=== PATIENT | female | born 1955 | race Caucasian/White ===

== ENCOUNTER 2016-08-03 20:08 | Emergency (ER) | payer OTHER ==
[~2016-08-03] VITALS: Ht 170.2 cm; Wt 90.7 kg
[~2016-08-03 20:08] MED LIST: ALBUTEROL MDI INH; BACLOFEN PO; BENTYL20 MG PO; CIPRO 500MG TA500 MG PO; CYCLOBENZAPRINE5 M2 PO; DELTASONE20 MG PO; DEXILANT60 M1 PO; IBUPROFEN PO; IMITREX50 M1 PO; LAMICTAL100 M2 PO; LORAZEPAM2 M1 PO; LYRICA75 M1 PO; METFORMIN HCL500 M4 PO; PROZAC20 M2 PO; SEROQUEL XR300 M1 PO; SEROQUEL100 M1 PO; SEROQUEL25 M1 PO; TESSALON PO; TIROSINT150 MC1 PO; TRAMADOL PO; TRAMADOL50 MG PO; ULTRAM50 M1 PO; VALSARTAN160 M1 PO; VESICARE10 MG PO
[2016-08-03] MEDS ORDERED: MEDROL4 M2 PO (22:53)
[2016-08-03] MEDS ORDERED: CIPRO500 M1 PO (22:53)
[2016-08-03] MEDS ORDERED: PYRIDIUM100 M1 PO (22:53)
--- NOTE | 2016-08-03 22:54 | ED GI/GU/ABDOMINAL COMPLAINT ---
History of Present Illness General Chief Complaint: General Adult Stated Complaint: PT HAS POSSIBLE UTI Source: patient Exam Limitations: no limitations Vital Signs & Intake/Output Vital Signs & Intake/Output Vital Signs Date Time Temp Pulse Resp B/P B/P Pulse O2 O2 Flow FiO2 Mean Ox Delivery Rate 08/03 2305 98.6 89 20 124/72 94 08/03 2045 98.4 98 22 129/75 93 Room Air ED Intake and Output 08/04 0000 08/03 1200 Intake Total Output Total Balance Patient 200 lb Weight Weight Reported by Patient Measurement Method Allergies Coded Allergies: Cephalosporins (Severe, RESP DISTRESS 08/03/16) cefaclor (Severe, RESPIRATORY, ITCHING 08/03/16) codeine (Severe, ITCHING AND BREATHING 08/03/16) morphine (Severe, ITCHING AND BREATHING 08/03/16) oxycodone (Severe, ITCHING AND BREATHING 08/03/16) Reconcile Medications [ALBUTEROL MDI] 2-4 PUFF INH Q4HPRN PRN BRONCHOSPASM Ciprofloxacin HCl (Cipro) 500 MG TABLET 1 TAB PO BID PRN uti Dexlansoprazole (Dexilant) 60 MG CAP.DR.BP 1 CAP PO DAILY GI (Reported) Fluoxetine HCl (Prozac) 20 MG CAPSULE 1 CAP PO QAM MENTAL HEALTH (Reported) Lamotrigine (Lamictal) 100 MG TABLET 4 TAB PO QPM MENTAL HEALTH (Reported) Levothyroxine Sodium (Tirosint) 150 MCG CAPSULE 1 TAB PO DAILY AC THYROID ( Reported) Lorazepam 2 MG TABLET 1 TAB PO QPM ANXIETY (Reported) Metformin HCl (Metformin HCl ER) 500 MG TAB.ER.24H 1 TAB PO DAILY DIABETES ( Reported) Methylprednisolone. (Medrol) 4 MG TAB.DS.PK 1 DP PO AD rash 6 on day 1 then reduce by one tablet daily until gone Phenazopyridine HCl (Pyridium) 100 MG TABLET 1 TAB PO TID uti Pregabalin (Lyrica) 75 MG CAPSULE 1 CAP PO BID PAIN (Reported) Quetiapine Fumarate (Seroquel) 25 MG TABLET 1 TAB PO DAILY PRN MENTAL HEALTH (Reported) Quetiapine Fumarate (Seroquel XR) 300 MG TAB.ER.24H 1 TAB PO QPM MENTAL HEALTH (Reported) Quetiapine Fumarate (Seroquel) 100 MG TABLET 1 TAB PO QPM MEN] (Reported) Quetiapine Fumarate (Seroquel) 25 MG TABLET 2 TAB PO DAILY MENTAL HEALTH ( Reported) Solifenacin Succinate (Vesicare) 10 MG TABLET 1 TAB PO DAILY BLADDER ( Reported) Sumatriptan Succinate (Imitrex) 50 MG TABLET 1 TAB PO AD PRN HEADACHE ( Reported) Tramadol HCl (Ultram) 50 MG TABLET 1 TAB PO Q6P PRN pain Valsartan 160 MG TABLET 1 TAB PO DAILY BP (Reported) Triage Note: TRIAGE: PT TO ER C/C ?UTI. REPORTS PELVIC PAIN AND PAIN WHEN URINATING X ABOUT A WEEK. ALSO REPORTS SOME BACK PAIN AMD INCREASED URINARY FREQUENCY. GIVEN URINE SPECIMEN CONTAINER AT TRIAGE. Triage Nurses Notes Reviewed? yes ? n Is pt currently ? No Onset: Abrupt Duration: week(s): (1), constant, continues in ED Timing: recent history Location: urethral Radiation: no radiation No Modifying Factors: none HPI: 60-year-old female with increased frequency and painful urination for over a week. Some lower pelvic pressure and pain. Some right upper back pain. Denies any vomiting. Denies any fever. History of appendectomy and hysterectomy. (MARIN TORRES) Past History Travel History Traveled to [place] past 21 day No Medical History Any Pertinent Medical History? see below for history Neurological: NONE EENT: NONE Cardiovascular: hypertension Respiratory: NONE Gastrointestinal: NONE Hepatic: NONE Renal: NONE Musculoskeletal: NONE Psychiatric: bipolar disease Endocrine: diabetes Blood Disorders: NONE Cancer(s): thyroid cancer BURN NURSE/Reproductive: NONE Surgical History Surgical History: appendectomy, hysterectomy Psychosocial History Who do you live with Son Services at Home None What is your primary language Cuban Tobacco Use: Never used ETOH Use: occasional use Illicit Drug Use: denies illicit drug use Family History Hx Contributory? No (MARIN TORRES) Review of Systems Review of Systems Constitutional: Reports: no symptoms. EENTM: Reports: no symptoms. Respiratory: Reports: no symptoms. Cardiovascular: Reports: no symptoms. GI: Reports: no symptoms. Genitourinary: Reports: see HPI. Musculoskeletal: Reports: no symptoms. Skin: Reports: no symptoms. Neurological/Psychological: Reports: no symptoms. Hematologic/Endocrine: Reports: no symptoms. Immunologic/Allergic: Reports: no symptoms. All Other Systems: Reviewed and Negative (MARIN TORRES) Physical Exam Physical Exam General Appearance: well developed/nourished, alert, awake Head: atraumatic Eyes: Bilateral: normal appearance, EOMI. Ears, Nose, Throat, Mouth: hearing grossly normal, moist mucous membrane Neck: normal inspection Respiratory: no respiratory distress Gastrointestinal: soft, tenderness (suprapubic) Back: normal inspection Extremities: normal range of motion Neurologic/Psych: awake, alert, oriented x 3, normal gait, normal mood/affect Skin: intact, normal color Core Measures ACS in differential dx? No Severe Sepsis Present: No Septic Shock Present: No (MARIN TORRES) Progress Differential Diagnosis: appendicitis, bowel obstruction, colon cancer, diverticulitis, kidney stone, ovarian cyst, ovarian torsion, threatened AB Plan of Care: Orders Procedure Date/time Status Add-on Test (ER Only) 08/03 2242 Active CULTURE,URINE 08/03 2199 Active URINALYSIS 08/03 2021 Complete Laboratory Tests 08/03/162199: Urine Color YEL, Urine Clarity CLDY H, Urine pH 6.0, Ur Specific [place]roft <= 1.005, Urine Protein NEG, Urine Ketones NEG, Urine Nitrite POS H, Urine Bilirubin NEG, Urine Urobilinogen 0.2, Ur Leukocyte Esterase LARGE H, Ur Microscopic SEDIMENT EXAMINED, Urine WBC > 75 H, Ur Epithelial Cells MANY H, Urine Bacteria MANY H, Urine Hemoglobin TRACE-INTACT, Urine Glucose NEG Microbiology 08/03 2199 URINE ROUT: Urine Culture - RES GRAM NEGATIVE RODS Initial ED EKG: none Comments: Symptoms are consistent with uncomplicated UTI. Clinically looks well. Patient treated symptomatically. No suspicion for (MARIN TORRES) Departure Departure Disposition: HOME OR SELF CARE Condition: Stable Clinical Impression Primary Impression: UTI (urinary tract infection) Secondary Impressions: Contact dermatitis Referrals: RITA SANTA,PHILOMENA Vidal (PCP/Family) Additional Instructions: Take ciprofloxacin, Pyridium, and Medrol Dosepak as prescribed. Drink plenty of fluids. Rest. Return if any fever or vomiting or any other concerns worsening symptoms. Please go over all results of today's visit with your primary care doctor. Contact your primary care doctor to let them know you were here in the emergency room. There may be nonspecific findings which may not be related to your visit today here in the emergency room but may require further evaluation and chronic monitoring by your primary care doctor. If you had a laceration today the chance of foreign body always remains. You should follow-up with your primary care doctor for recheck in 3-5 days for a wound check. If you had an x-ray done there is a chance that a fracture could have been missed on initial read and you should follow-up with your primary care doctor for repeat x-rays if symptoms persist. If your blood pressure was elevated here in the emergency room please have rechecked by her primary care doctor within the next 48 hours by your primary care doctor. If you were prescribed a narcotic here in the emergency room or any type of controlled substances you're not allowed to drive while taking this medication or operate any type of heavy machinery. Narcotics can make you feel lightheaded dizziness nausea and can cause constipation. You may need to picking machine operator a stool softener. Thank you for choosing [facility] emergency room. Please return to the emergency room immediately if you have any other concerns worsening of symptoms. Departure Forms: Customer Survey General Discharge Information Prescriptions: Current Visit Scripts Methylprednisolone. (Medrol) 1 DP PO AD #1 DP 6 on day 1 then reduce by one tablet daily until gone Ciprofloxacin HCl (Cipro) 1 TAB PO BID PRN uti #14 TAB Phenazopyridine HCl (Pyridium) 1 TAB PO TID #6 TAB (MARIN TORRES) PA/ROLL FORM OPERATOR Co-Sign Statement Statement: ED Attending supervision documentation- I saw and evaluated the patient. I have also reviewed all the pertinent lab results and diagnostic results. I agree with the findings and the plan of care as documented in the PA's/ROLL FORM OPERATOR's documentation. x I have reviewed the ED Record and agree with the PA's/ROLL FORM OPERATOR's documentation. [] Additions or exceptions (if any) to the PAs/ROLL FORM OPERATOR's note and plan are summarized below: [] (REYES SANTA,NAUN)
[2016-08-03 23:05] VITALS: BP 124/72
[2016-08-17] MEDS ORDERED: SEROQUEL50 M1 PO ×2 (17:57→17:58)
[2016-08-17] MEDS ORDERED: LIOTHYRONINE SO5 MC1 PO (17:58)
[2016-08-17] MEDS ORDERED: ZOLOFT50 M1 PO (17:59)
[2016-08-17] MEDS ORDERED: PROAIR HFA8.5 GM INH (18:00)
[2016-08-17] MEDS ORDERED: ESTRACE42.5 GM VG (18:02)
[2016-08-17] MEDS ORDERED: ADVIL MIGRAINE200 M1 PO (18:02)
[2016-08-17] MEDS ORDERED: TYLENOL325 M1 PO (18:02)
[2016-08-17] MEDS ORDERED: LEVAQUIN750 M1 PO (18:53)
== END 2016-08-03 23:20 ==
LOC: ERH 20:08
DX: N39.0 Urinary tract infection, site not specified (principal); L25.9 Unspecified contact dermatitis, unspecified cause
CPT/HCPCS: 81001; 87086

== ENCOUNTER 2017-06-12 13:10 | Emergency (ER) | payer OTHER ==
[~2017-06-12] VITALS: Ht 170.2 cm; Wt 95.3 kg
[~2017-06-12 13:10] MED LIST changes: +ADVIL MIGRAINE200 M1 PO; +CIPRO500 M1 PO; +ESTRACE42.5 GM VG; +LEVAQUIN750 M1 PO; +LIOTHYRONINE SO5 MC1 PO; +MEDROL4 M2 PO; +PROAIR HFA8.5 GM INH; +PYRIDIUM100 M1 PO; +SEROQUEL50 M1 PO; +TYLENOL325 M1 PO; +ZOLOFT50 M1 PO
--- NOTE | 2017-06-12 16:00 | RADIOLOGY REPORT ---
EXAMINATION: XR CHEST CLINICAL INFORMATION: Cough, shortness of breath COMPARISON: Chest x-ray 03/19/2016 TECHNIQUE: 2 views of the chest were obtained. FINDINGS: Lungs are clear. No pulmonary vascular congestion. There is no pleural effusion. The heart size is normal. The cardiac and mediastinal contours are normal. There are multilevel degenerative changes of dorsal spine. IMPRESSION: Unremarkable examination.
--- NOTE | 2017-06-12 16:21 | ED GENERAL ADULT ---
History of Present Illness General Chief Complaint: Dyspnea (COPD, CHF, Other) Stated Complaint: SOB Source: patient Exam Limitations: no limitations Vital Signs & Intake/Output Vital Signs & Intake/Output Vital Signs Date Time Temp Pulse Resp B/P B/P Pulse O2 O2 Flow FiO2 Mean Ox Delivery Rate 06/125 97.0 86 20 128/67 98 Room Air 06/12 1844 98 Room Air 06/12 1727 97.2 78 20 129/60 100 Aerosol 6.0L Mask 06/12 1720 96 Room Air 06/12 1720 97 06/12 1313 96.9 96 18 123/79 96 Room Air Allergies Coded Allergies: Cephalosporins (Severe, RESP DISTRESS 08/03/16) cefaclor (Severe, DYSPNEA, ITCHING 08/17/16) codeine (Severe, ITCHING, DYSPNEA, HALLUCINATE 08/17/16) morphine (Severe, ITCHING, DYSPNEA, HALLUCINATING 08/17/16) oxycodone (Severe, ITCHING, DYSPNEA, HALLUCINATE 08/17/16) Reconcile Medications Acetaminophen (Tylenol) 325 MG TABLET 1 TAB PO PRN PAIN (Reported) Albuterol Sulfate (Proair Hfa) 90 MCG HFA.AER.AD 2 PUF INH AD PRN ASTHMA ( Reported) Albuterol Sulfate (Proair Hfa) 90 MCG HFA.AER.AD 2 PUF INH Q4-6 PRN PRN ASTHMA Dexlansoprazole (Dexilant) 60 MG CAP.DR.BP 1 CAP PO DAILY GI (Reported) Doxycycline Hyclate (Vibramycin) 100 MG CAPSULE 1 CAP PO BID BRONCHITIS Estradiol (Estrace) 0.01 % CREAM.APPL 0.5 GM VG 2XW HRT (Reported) Ibuprofen (Advil Migraine) 200 MG CAPSULE 2-3 CAP PO PRN PAIN (Reported) Lamotrigine (Lamictal) 100 MG TABLET 4 TAB PO QPM MENTAL HEALTH (Reported) Levothyroxine Sodium (Tirosint) 150 MCG CAPSULE 1 TAB PO DAILY AC THYROID ( Reported) Liothyronine Sodium 5 MCG TABLET 1 TAB PO DAILY THYROID (Reported) Lorazepam 2 MG TABLET 1 TAB PO QPM ANXIETY (Reported) Metformin HCl (Metformin HCl ER) 500 MG TAB.ER.24H 1 TAB PO DAILY DIABETES ( Reported) Prednisone (Deltasone) 20 MG TABLET 1 TAB PO DAILY BRONCHITIS/ASTHMA Pregabalin (Lyrica) 75 MG CAPSULE 1 CAP PO BID PAIN (Reported) Quetiapine Fumarate (Seroquel XR) 300 MG TAB.ER.24H 1 TAB PO QPM MENTAL HEALTH (Reported) Quetiapine Fumarate (Seroquel) 100 MG TABLET 1 TAB PO QPM MENTAL HEALTH ( Reported) Quetiapine Fumarate (Seroquel) 50 MG TABLET 1 TAB PO QAM MENTAL HEALTH ( Reported) Quetiapine Fumarate (Seroquel) 50 MG TABLET 1 TAB PO PRN ANXIETY (Reported) Sertraline HCl (Zoloft) 50 MG TABLET 1 TAB PO QPM MENTAL HEALTH (Reported) Solifenacin Succinate (Vesicare) 10 MG TABLET 1 TAB PO DAILY BLADDER ( Reported) Sumatriptan Succinate (Imitrex) 50 MG TABLET 1 TAB PO AD PRN HEADACHE ( Reported) Tramadol HCl (Ultram) 50 MG TABLET 1-2 TAB PO BIDP PRN pain Valsartan 160 MG TABLET 1 TAB PO DAILY BP (Reported) Triage Note: C/O SOB WITH DRY COUGH X 3 DAYS. WORE WITH EXERTION, ALSO C/O MID BACK PAIN. DENIES CHEST PAIN. Triage Nurses Notes Reviewed? yes Onset: Abrupt Duration: day(s): Timing: recent history HPI: 06/12/17 61-year-old female presents to the emergency department complaining of cough and congestion. She does have a history of bronchitis and is used an inhaler in the past. She denies fever but does admit to cough productive of sputum. She does admit to pleuritic chest pain. Past History Travel History Traveled to [place] past 21 day No Medical History Any Pertinent Medical History? see below for history Neurological: NONE EENT: NONE Cardiovascular: hypertension Respiratory: asthma Gastrointestinal: NONE Hepatic: NONE Renal: NONE Musculoskeletal: NONE Psychiatric: bipolar disease Endocrine: diabetes Blood Disorders: NONE Cancer(s): thyroid cancer MANAGEMENT DEVELOPMENT SPECIALIST/Reproductive: NONE Surgical History Surgical History: appendectomy, hysterectomy Psychosocial History Who do you live with Son Services at Home None What is your primary language Malaysian Tobacco Use: Never used ETOH Use: denies use Family History Hx Contributory? No Review of Systems Review of Systems Constitutional: Denies: fever. Respiratory: Reports: cough. Denies: short of breath. Cardiovascular: Denies: chest pain. GI: Reports: see HPI. Genitourinary: Reports: no symptoms. Musculoskeletal: Reports: no symptoms. Skin: Reports: no symptoms. Neurological/Psychological: Reports: no symptoms. Hematologic/Endocrine: Reports: no symptoms. Immunologic/Allergic: Reports: no symptoms. Physical Exam Physical Exam General Appearance: well developed/nourished, alert, awake, anxious, mild distress Head: atraumatic, normal appearance Eyes: Bilateral: normal appearance, PERRL, EOMI. Ears, Nose, Throat: normal pharynx, normal ENT inspection Neck: normal inspection, supple, full range of motion Respiratory: rhonchi Cardiovascular: regular rate/rhythm Peripheral Pulses: 4+ radial (R), 4+ radial (L) Gastrointestinal: soft, non-tender Back: decreased range of motion Extremities: no edema Neurologic/Psych: no motor/sensory deficits, awake, alert, oriented x 3 Skin: normal color, warm/dry Core Measures ACS in differential dx? No CVA/TIA Diagnosis: No Sepsis Present: No Sepsis Focused Exam Completed? No Progress Differential Diagnoses I considered the following diagnoses in my evaluation of the patient: pneumionia, pneumothorax, bronchitis, asthma, pulmonary embolism] Plan of Care: Orders Procedure Date/time Status Saline Lock 06/12 1706 Active TROPONIN LEVEL 06/12 1706 Complete D-DIMER 06/12 1706 Complete COMPREHENSIVE METABOLIC PANEL 06/12 1706 Complete CBC WITHOUT DIFFERENTIAL 06/12 1706 Complete EKG 06/12 1706 Active Laboratory Tests 06/12/17 1725: Anion Gap 12, Estimated GFR 35 L, BUN/Creatinine Ratio 21.3, Glucose 111 H, Calcium 9.6, Total Bilirubin 0.4, AST 26, ALT 36, Alkaline Phosphatase 113, Troponin I < 0.01, Total Protein 7.6, Albumin 4.8, Globulin 2.8, Albumin/ Globulin Ratio 1.7, D-Dimer High Sensitivty 274 H, CBC w Diff NO MAN DIFF REQ, RBC 4.14 L, MCV 87.7, MCH 28.6, MCHC 32.7 L, RDW 15.5 H, MPV 7.2 L, Gran % 57.8, Lymphocytes % 30.5, Monocytes % 8.2, Eosinophils % 3.1, Basophils % 0.4, Absolute Granulocytes 4.3, Absolute Lymphocytes 2.3, Absolute Monocytes 0.6, Absolute Eosinophils 0.2, Absolute Basophils 0 Initial ED EKG: NSR, nonspecific ST T wave chg Departure Departure Disposition: HOME OR SELF CARE Condition: Stable Clinical Impression Primary Impression: Bronchitis Referrals: Gerard SANTA,Markie Vidal (PCP/Family) Departure Forms: Customer Survey General Discharge Information Prescriptions: Current Visit Scripts Albuterol Sulfate (Proair Hfa) 2 PUF INH Q4-6 PRN PRN ASTHMA #1 INHAL Doxycycline Hyclate (Vibramycin) 1 CAP PO BID #14 CAP Prednisone (Deltasone) 1 TAB PO DAILY #3 TAB Comments PATIENT: QUEENIE WELLINGTON PRESENT AGE: 61 PATIENT ACCOUNT NO: [id number] : 56 LOCATION: [facility] ORDERING PHYSICIAN: Javid RESTREPO SERVICE DATE: 06/12/17 EXAM TYPE: RAD - XRY-CHEST XRAY, TWO VIEWS EXAMINATION: XR CHEST CLINICAL INFORMATION: Cough, shortness of breath COMPARISON: Chest x-ray 03/19/2016 TECHNIQUE: 2 views of the chest were obtained. FINDINGS: Lungs are clear. No pulmonary vascular congestion. There is no pleural effusion. The heart size is normal. The cardiac and mediastinal contours are normal. There are multilevel degenerative changes of dorsal spine. IMPRESSION: Unremarkable examination. DICTATED BY: Donell Francis MD DATE/TIME DICTATED:06/12/171555 SALES VICE PRESIDENT:ANA DATE/TIME TRANSCRIBED:06/12/171555 CONFIDENTIAL, DO NOT COPY WITHOUT APPROPRIATE AUTHORIZATION. <Electronically signed in Other Vendor System> SIGNED BY: Donell Francis MD 06/12/17 1600 X-rays negative. Age-adjusted d-dimer is negative, labs essentially unremarkable. EKG is negative. We'll treat with a short course of prednisone. Encourage by mouth fluids and give, antibiotics and an inhaler. She'll follow- up with her doctor this week Critical Care Note Critical Care Note Critical Care Time: non-applicable
[2017-06-12 17:37] LABS: ABSOLUTE BASOPHIL COUNT 0 /CUMM (0.0-0.2); ABSOLUTE EOSINOPHIL COUNT 0.2 /CUMM (0.0-0.7); ABSOLUTE GRANULOCYTE CT 4.3 /CUMM (1.4-6.5); ABSOLUTE LYMPH COUNT 2.3 /CUMM (1.2-3.4); ABSOLUTE MONOCYTE COUNT 0.6 /CUMM (0.10-0.60); BASOPHIL % 0.4 % (0.0-2.0); EOSINOPHIL % 3.1 % (0-5); GRANULOCYTE % 57.8 % (42.2-75.2); HEMATOCRIT 36.3 % (37-47); MEAN CORPUSCULAR HGB 28.6 PG (27.0-31.0); MEAN CORPUSCULAR HGB CONC 32.7 G/DL (33.0-37.0); MEAN CORPUSCULAR VOLUME 87.7 FL (81.0-99.0); MEAN PLATELET VOLUME 7.2 FL (7.4-10.4); PLATELET COUNT 314 /CUMM (130-400); RBC DISTRIBUTION WIDTH 15.5 % (11.5-14.5); RED BLOOD CELL CT 4.14 /CUMM (4.20-5.40); WHITE BLOOD CELL COUNT 7.5 /CUMM (4.8-10.8)
[2017-06-12] MEDS ORDERED: VIBRAMYCIN100 MG PO ×2 (18:37→18:45)
[2017-06-12] MEDS ORDERED: DELTASONE20 MG PO ×2 (18:37→18:45)
[2017-06-12] MEDS ORDERED: PROAIR HFA8.5 GM INH ×2 (18:37→18:45)
[2017-06-12 18:45] VITALS: BP 128/67
== END 2017-06-12 18:58 ==
LOC: ERH 13:10
PROVIDERS: Emergency Medicine
DX: J40 Bronchitis, not specified as acute or chronic (principal); R06.00 Dyspnea, unspecified; M54.6 Pain in thoracic spine; R05 Cough; I10 Essential (primary) hypertension
CPT/HCPCS: 1263; 1395; 71046; 93005; 93010; 96374; J2930

== ENCOUNTER → 2017-07-27 | Day surgery (SDC) | payer OTHER ==
[~2017-07-27] VITALS: Ht 170.2 cm; Wt 93.0 kg
[~2017-07-27] MED LIST changes: +MYRBETRIQ25 M1 PO; +SEROQUEL XR400 M1 PO; +VERAPAMIL ER120 M1 PO; +VIBRAMYCIN100 MG PO; +VITAMIN D2000 UNI1 PO
--- NOTE | 2017-07-27 08:30 | Operative Report ---
Operative/Inv Procedure Report Surgery Date: 07/27/17 Name of Procedure: urethral sling, cystoscopy Pre-Operative Diagnosis: stress incontinence Post-Operative Diagnosis: same Estimated Blood Loss: 50ml to 100ml Surgeon/Inside Sales Specialist: Jaquelin James MD Anesthesia: local monitored anesthesi Implants: vaginal mesh Drains: none Complications: none Condition: stable Operative Indication: stress incontinence Operative/Procedure Note Note: 61-year-old female with a history of stress urinary incontinence that is bothersome. She was given the option of urethral sling and given the risks, and benefits, and alternatives. All questions were answered. This was done in the office as well as in the holding area with the daughter present. Consent was signed. Patient was taken to the operating room placed on the operating table in the supine position. Timeout was performed. Cipro 400 mg IV antibiotics were infused. She was placed in the dorsolithotomy position and IV sedation was already started. She was prepped and draped in the standard sterile fashion after clipping her genitalia region of pubic hair. Winston catheter was placed and the bladder was drained. Since retractor was placed and 1% lidocaine was infiltrated into the anterior vaginal wall beneath the urethra. An incision was made approximately 2 inches in length beneath the urethra. Care was taken not to injure the urethra. The vaginal flaps were created taking care not to injure the urethra with sharp dissection with the Metzenbaum scissors. Once dissection was complete, the Altis sling kit was then opened. The trochars provided were used to place the sling first in the left side than the right side. The vaginal first fornices were not pierced by the trochars. The sling was seen to be in good position and it was tightened in a tension-free manner with a DeBakey between the urethra and the sling. Area was grossly irrigated with bacitracin irrigation. The tightening Prolene suture was then cut. Incision was closed with a running locking 3-0 Vicryl every third suture. There is no mesh in the vaginal fornices. Winston catheter was removed and a cystoscopy was performed. The bladder was globally inspected. There was no mesh in the bladder or the urethra. The bladder anatomy was within normal limits and in ureteral orifices were in their normal anatomic location. The bladder was emptied. The vagina was packed with 2 inch vaginal packing impregnated with bacitracin ointment. Sponge and needle count were correct at the end of the case. She was transferred to the recovery room stable condition. Findings: No mesh in the bladder, urethra, or vaginal fornices. Normal bladder anatomy. Discharge Disposition: PACU
== END ==
LOC: STS 01:36
DX: N39.3 Stress incontinence (female) (male) (principal); R39.14 Feeling of incomplete bladder emptying; E03.9 Hypothyroidism, unspecified; E11.9 Type 2 diabetes mellitus without complications; J45.909 Unspecified asthma, uncomplicated; K21.9 Gastro-esophageal reflux disease without esophagitis; I10 Essential (primary) hypertension; Z85.850 Personal history of malignant neoplasm of thyroid; E66.9 Obesity, unspecified; Z68.34 Body mass index [BMI] 34.0-34.9, adult
CPT/HCPCS: C1771; J0131; J0744; J2250

== ENCOUNTER 2017-10-26 16:20 | Inpatient (IN) | payer OTHER ==
[~2017-10-26] VITALS: Ht 170.2 cm; Wt 103.6 kg
[2017-10-26 16:54] LABS: ABSOLUTE BASOPHIL COUNT 0 /CUMM (0.0-0.2); ABSOLUTE EOSINOPHIL COUNT 0.2 /CUMM (0.0-0.7); ABSOLUTE GRANULOCYTE CT 4.5 /CUMM (1.4-6.5); ABSOLUTE LYMPH COUNT 2.1 /CUMM (1.2-3.4); ABSOLUTE MONOCYTE COUNT 0.6 /CUMM (0.10-0.60); BASOPHIL % 0.5 % (0.0-2.0); EOSINOPHIL % 2.6 % (0-5); GRANULOCYTE % 60.7 % (42.2-75.2); HEMATOCRIT 35.8 % (37-47); MEAN CORPUSCULAR HGB 28.9 PG (27.0-31.0); MEAN CORPUSCULAR HGB CONC 33.5 G/DL (33.0-37.0); MEAN CORPUSCULAR VOLUME 86.3 FL (81.0-99.0); MEAN PLATELET VOLUME 7.5 FL (7.4-10.4); PLATELET COUNT 257 /CUMM (130-400); RED BLOOD CELL CT 4.16 /CUMM (4.20-5.40); WHITE BLOOD CELL COUNT 7.4 /CUMM (4.8-10.8)
--- NOTE | 2017-10-26 17:02 | CT SCAN REPORT ---
EXAMINATION: CT HEAD WITHOUT CONTRAST CLINICAL INFORMATION: Confusion. COMPARISON: None TECHNIQUE: Contiguous axial imaging was performed from the skull base to vertex without intravenous administration of contrast. DLP: 611.02 mGy-cm FINDINGS: There is no evidence of acute intracranial hemorrhage or territorial infarction. No abnormal mass effect or midline shift is seen. Peng to white matter differentiation is well preserved. No extra-axial fluid collections are identified. There is atrophy with prominence of the ventricles and the sulci and hypodensity of the periventricular white matter due to chronic small vessel ischemic disease. There is vascular calcifications of the internal carotid arteries bilaterally. The osseous structures and soft tissues are normal. The mastoid air cells and visualized portions of the paranasal sinuses are well aerated. IMPRESSION: No acute intracranial pathology.
--- NOTE | 2017-10-26 17:52 | ED GENERAL ADULT ---
History of Present Illness General Chief Complaint: Neuro Symptoms/ Deficit Stated Complaint: BIBA ?STROKE Source: patient, family, old records Exam Limitations: no limitations Vital Signs & Intake/Output Vital Signs & Intake/Output Vital Signs Date Time Temp Pulse Resp B/P B/P Pulse O2 O2 Flow FiO2 Mean Ox Delivery Rate 10/26 1630 98.2 73 18 141/65 99 Room Air Allergies Coded Allergies: Cephalosporins (Severe, RESP DISTRESS, ITCHING 10/26/17) cefaclor (Severe, DYSPNEA, ITCHING 08/17/16) codeine (Severe, ITCHING, DYSPNEA, HALLUCINATE 08/17/16) morphine (Severe, ITCHING, DYSPNEA, HALLUCINATING, HIVES 10/26/17) oxycodone (Severe, ITCHING, DYSPNEA, HALLUCINATE 08/17/16) NSAIDS (Non-Steroidal Anti-Inflamma (DUE TO RENAL FUNCTION 10/26/17) aspirin (DUE TO RENAL FUNCTIONS 10/26/17) doxycycline (ITCHING ALL OVER BODY 07/25/17) Reconcile Medications Acetaminophen 500 MG TABLET 1 TAB PO PRN PAIN (Reported) Albuterol Sulfate (Proair Hfa) 90 MCG HFA.AER.AD 2 PUF INH AD PRN ASTHMA ( Reported) Cholecalciferol (Vitamin D3) (Vitamin D) (Unknown Strength) TABLET (Unknown Dose) PO DAILY SUPPLEMENT (Reported) Dexlansoprazole (Dexilant) 60 MG CAP.DR.BP 1 CAP PO DAILY GI (Reported) Estradiol (Estrace) 0.01 % CREAM.APPL 0.5 GM VG ONCE A WEEK HRT (Reported) Fluticasone/Vilanterol (Breo Ellipta 200-25 Mcg INH) (Unknown Strength) BLST.W.DEV 1 PUFF INH QAM RESP. (Reported) Lamotrigine (Lamictal XR) 200 MG TAB.ER.24 2 TAB PO QPM MENTAL HEALTH ( Reported) Levothyroxine Sodium (Tirosint) 150 MCG CAPSULE 1 TAB PO DAILY AC THYROID ( Reported) Liothyronine Sodium 5 MCG TABLET 1 TAB PO DAILY THYROID (Reported) Lorazepam 2 MG TABLET 1 TAB PO QPM ANXIETY (Reported) Mirabegron (Myrbetriq) (Unknown Strength) TAB.ER.24H (Unknown Dose) PO DAILY BLADDER (Reported) Pregabalin (Lyrica) 75 MG CAPSULE 1 CAP PO BID PAIN (Reported) Quetiapine Fumarate (Seroquel) 50 MG TABLET 1 TAB PO QPM MENTAL HEALTH ( Reported) Quetiapine Fumarate (Seroquel) 50 MG TABLET 1 TAB PO PRN ANXIETY (Reported) Quetiapine Fumarate 100 MG TABLET 1 TAB PO QAM MENTAL HEALTH (Reported) Quetiapine Fumarate (Seroquel XR) 400 MG TAB.ER.24H 1 TAB PO QPM MENTAL HEALTH (Reported) Sertraline HCl (Zoloft) 50 MG TABLET 1 TAB PO QPM MENTAL HEALTH (Reported) Sumatriptan Succinate (Imitrex) 50 MG TABLET 1 TAB PO AD PRN HEADACHE ( Reported) Valsartan 160 MG TABLET 1 TAB PO DAILY BP (Reported) Verapamil HCl (Verapamil ER) 120 MG TABLET.ER 1 TAB PO DAILY HEART (Reported) Triage Note: PT BIBA FROM HOME FOR ARM NUMBNESS & SLURRED SPEECH PER PT & EMS. PT STATES SHE HAD SOME FACIAL & ARM NUMBNESS SINCE YESTERDAY & SLURRED SPEECH SINCE THIS AM. PT HAS EQUAL STRENGTH IN ALL 4 EXTREMITIES WNL. A0X4. AWARE OF PT. Triage Nurses Notes Reviewed? yes HPI: History is given by the patient's daughter and the patient. The patient's daughter reports that the patient was brought in for confusion. According to EMS there was also some slurred speech and dizziness. The patient denies any physical pain. Reports having confusion and being off balance. Everything ongoing since yesterday. Past History Travel History Traveled to [place] past 21 day No Medical History Any Pertinent Medical History? 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 No Review of Systems Review of Systems Constitutional: Denies: see HPI, chills, diaphoresis. EENTM: Denies: see HPI, blurred vision, double vision. Respiratory: Denies: see HPI, cough, hemoptysis. Cardiovascular: Denies: see HPI, chest pain, edema. GI: Denies: see HPI, abdominal pain, bloating, constipation. Genitourinary: Denies: see HPI, discharge, dysuria, frequency. Musculoskeletal: Denies: back pain. Skin: Denies: cysts, change in skin color. Neurological/Psychological: Denies: anxiety, ataxia. Hematologic/Endocrine: Denies: bruising, bleeding. Physical Exam Physical Exam General Appearance: well developed/nourished, no apparent distress, alert, awake Head: atraumatic, normal appearance Eyes: Bilateral: PERRL, EOMI. Ears, Nose, Throat: normal pharynx, normal ENT inspection Neck: normal inspection, supple Respiratory: normal breath sounds, chest non-tender, no respiratory distress Cardiovascular: regular rate/rhythm Gastrointestinal: normal bowel sounds, soft, non-tender Back: normal inspection, normal range of motion Neurologic/Psych: awake, alert, oriented x 3 Skin: intact, normal color Comments: Normal neurological exam. Awake alert and oriented 4. Muscle groups are normal in all extremities. Pulses are normal. No ataxia of any limb. Normal sensations. Digital neurological exam negative. Patient is also oriented to time place and person. She is slow to respond, has some confusion but since she came in she seems to have improved. This could be because of people repeatedly questioning her and giving her answers. Core Measures ACS in differential dx? No CVA/TIA Diagnosis: No Sepsis Present: No Sepsis Focused Exam Completed? No Progress Differential Diagnoses . Plan of Care: Orders Procedure Date/time Status Patient Data 10/26 1816 Active SWALLOW EVALUATION 10/26 181 Active ED Holding Orders 10/26 181 Active Admit to inpatient 10/26 181 Active Vital Signs 10/26 181 Active Code Status 10/26 1810 Active FingerStick- Glucose 10/26 1630 Active URINALYSIS 10/26 1630 Active TROPONIN LEVEL 10/26 1630 Complete CBC WITHOUT DIFFERENTIAL 10/26 1630 Complete BASIC METABOLIC PANEL 10/26 1630 Complete EKG 10/26 1630 Active Current Medications Sig/Berto Start time Last Medication Dose Stop Time Status Admin Acetaminophen 1,000 MG ONCE ONE 10/26 1830 UNVr (Ofirmev) 10/26 1831 Sodium Chloride 1,000 ML BOLUS ONE 10/26 1800 AC (Normal Saline 0.9%) 10/26 1859 Laboratory Tests 10/26/ 1632: Anion Gap 9, Estimated GFR 22 L, BUN/Creatinine Ratio 9.6, Glucose 112 H, Calcium 9.5, Troponin I < 0.01, CBC w Diff NO MAN DIFF REQ, RBC 4.16 L, MCV 86.3, MCH 28.9, MCHC 33.5, RDW 16.0 H, MPV 7.5, Gran % 60.7, Lymphocytes % 28.2 , Monocytes % 8.0, Eosinophils % 2.6, Basophils % 0.5, Absolute Granulocytes 4.5 , Absolute Lymphocytes 2.1, Absolute Monocytes 0.6, Absolute Eosinophils 0.2, Absolute Basophils 0 Initial ED EKG: see below Comments: EKG shows sinus, rate of 63, normal axis. Prolonged QT's. Nonspecific ST-T flattening. Compared to the EKG from June 02, 2017: No significant changes. No focal deficits. We will get CT scan and medical evaluation. The patient appears slightly dehydrated. Other than that appears in no distress. 1814 nonfocal neurological exam but confusion. Also the patient has acute on chronic renal failure. She appears dehydrated. Hydrate her up. The patient will be admitted for further evaluation and workup. Accepted by the hospitalist. I am not sure if the patient has a CVa not. But this is a concern. But the patient also has acute renal failure so I do not want to give her NSAIDs. At this time we will hold off on aspirin. Departure Departure Time of Disposition: 1814 Disposition: STILL A PATIENT Condition: Stable Clinical Impression Primary Impression: Confused Referrals: Gerard SANTA,Markie Vidal (PCP/Family) Departure Forms: Customer Survey General Discharge Information Admission Note Spoke With: Harsh Hannah MD Documentation of Exam: Documentation of any treatments & extenuating circumstances including Concerns Regarding Discharge (functional status, medication knowledge or non-compliance, living conditions, etc.) that warrant an admission rather than observation: MRI, further evaluation with neurology, IV fluids and nephrology evaluation Critical Care Note Critical Care Note Critical Care Time: non-applicable
[2017-10-26] MEDS ORDERED: ACETAMINOPHEN500 M4 PO (17:53)
[2017-10-26] MEDS ORDERED: BREO ELLIPTA 21 EACH INH (17:54)
[2017-10-26] MEDS ORDERED: LAMICTAL XR200 M1 PO (17:56)
[2017-10-26] MEDS ORDERED: QUETIAPINE FUM100 M1 PO (17:57)
[2017-10-26] MEDS ORDERED: JANUVIA50 M1 PO (19:48)
[2017-10-26] MEDS ORDERED: LAMICTAL100 M2 PO (19:49)
[2017-10-26] MEDS ORDERED: LYRICA100 M1 PO (19:50)
--- NOTE | 2017-10-26 19:50 | History & Physical ---
Estefania Stephen [birth year]: General Information and HPI MD Statement: I have seen and personally examined QUEENIE WELLINGTON and documented this H&P. The patient is a 62 year old F who presented with a patient stated chief complaint of []. Source of Information: patient, family Exam Limitations: no limitations History of Present Illness: 62 year old female with PMH HTN, DM, bipolar, thyroid cancer, CKD stage 3B presenting with confusion. Per patient and her daughter who is at bedside, patient woke up this morning feeling dizzy and was having slurred speech. She states she felt like the room was spinning. She lives with her son and wears dentures, but the son believed his mother's speech was more slurred than usual without dentures in. She also noted bilateral numbness to her arm and tingling in her fingertips. She made an appointment with her PCP Dr. Gee and went to be seen. Of note: this morning she also noted a brief episode of left sided chest pain that was sharp in nature. She states it came on suddenly and resolved within 5 minutes. No previous h/o same. Once she arrived at her PCP's office, she was found to be confused. The daughter was notified and the patient was brought to [facility]. While in the ED she states she continues to experience numbness that is improving slightly in bilateral arms. Her slurred speech has resolved and she reports no more episodes of chest pain. Denies fever , chills, recent illness, n/v/d, SOB, abdominal pain. Allergies/Medications Allergies: Coded Allergies: Cephalosporins (Severe, RESP DISTRESS, ITCHING 10/26/17) cefaclor (Severe, DYSPNEA, ITCHING 08/17/16) codeine (Severe, ITCHING, DYSPNEA, HALLUCINATE 08/17/16) morphine (Severe, ITCHING, DYSPNEA, HALLUCINATING, HIVES 10/26/17) oxycodone (Severe, ITCHING, DYSPNEA, HALLUCINATE 08/17/16) NSAIDS (Non-Steroidal Anti-Inflamma (DUE TO RENAL FUNCTION 10/26/17) aspirin (DUE TO RENAL FUNCTIONS 10/26/17) doxycycline (ITCHING ALL OVER BODY 07/25/17) Past History Travel History Traveled to [place] past 21 day No Medical History Neurological: NONE EENT: NONE Cardiovascular: hypertension Respiratory: asthma Gastrointestinal: NONE Hepatic: NONE Renal: NONE Musculoskeletal: NONE Psychiatric: bipolar disease Endocrine: diabetes Blood Disorders: NONE Cancer(s): thyroid 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 Home Who Do You Live With? child Services at Home: None Smoking Status: Never Smoked ETOH Use: denies use (1-2 beers/month), occasional use Illicit Drug Use: denies illicit drug use Review of Systems Review of Systems Constitutional: Reports: no symptoms. EENTM: Reports: no symptoms (dizziness). Cardiovascular: Reports: chest pain. Denies: edema, syncope. Respiratory: Reports: no symptoms. GI: Reports: no symptoms. Genitourinary: Reports: no symptoms. Musculoskeletal: Reports: no symptoms. Skin: Reports: no symptoms. Neurological/Psychological: Reports: confusion, numbness, tingling. Exam & Diagnostic Data Last 24 Hrs of Vital Signs/I&O Vital Signs Date Time Temp Pulse Resp B/P B/P Pulse O2 O2 Flow FiO2 Mean Ox Delivery Rate 10/26 2046 97.8 80 18 136/68 99 Room Air 10/26 1915 Room Air 10/26 1630 98.2 73 18 141/65 99 Room Air Physical Exam General Appearance Alert, Oriented X3, Cooperative, No Acute Distress Skin No Rashes Skin Temp/Moisture Exam: Warm/Dry HEENT Atraumatic Neck Supple Cardiovascular Regular Rate, Normal S1, Normal S2, No Murmurs Lungs Clear to Auscultation Abdomen Normal Bowel Sounds, Soft, No Tenderness Neurological Normal Speech, Strength at 5/5 X4 Ext, Normal Tone, Sensation Intact Extremities No Cyanosis, No Edema, Normal Pulses, No Tenderness/Swelling Assessment/Plan Assessment: 62 year old female with PMH HTN, DM, bipolar, thyroid cancer, CKD stage 3B presenting with confusion. Per patient and her daughter who is at bedside, patient woke up this morning feeling dizzy and was having slurred speech. She states she felt like the room was spinning. She lives with her son and wears dentures, but the son believed his mother's speech was more slurred than usual without dentures in. She also noted bilateral numbness to her arm and tingling in her fingertips. She made an appointment with her PCP Dr. Gee and went to be seen. Of note: this morning she also noted a brief episode of left sided chest pain that was sharp in nature. She states it came on suddenly and resolved within 5 minutes. No previous h/o same. Once she arrived at her PCP's office, she was found to be confused. The daughter was notified and the patient was brought to [facility] ED. While in the ED she states she continues to experience numbness that is improving slightly in bilateral arms. Her slurred speech has resolved and she reports no more episodes of chest pain. Patient to be admitted to telemetry for further evaluation of the following: Problem List: 1. Altered Mental Status 2. Acute on chronic CKD Admission Data: VS 98.2 P73 RR18 BP 141/65 Sat 99%RA Labs: WBC 7.4 H/H 12.0/35.8 Plt 257 Na 140 K3.5 BUN/Cr 22/2.3 Glu 112 T cholesterol 223; LDL 131 HDL 67 EKG: non specific changes Carotid US:IMPRESSION: No hemodynamically significant stenosis in either carotid artery. No atherosclerotic plaque seen in either carotid arteries. Normal antegrade flow seen in both vertebral arteries. CT head: no acute findings #Altered Mental status-could be 2/2 TIA; symptoms resolved and patient is A&O x3 with no focal deficits. -MRI in am for further assessment -bedside swallow eval; formal swallow eval in am -telemetry monitoring -Cardiology consult -Echo -serial troponins Q6hrs #Acute on chronic CKD-maybe 2/2 to dehydration vs worsening kidney disease. 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 Will refer to nephrology as an outpatient. Will replete fluids and monitor Cr. If it does not improve will obtain renal ultrasound for further investigation -1L NS @75cc/hr -monitor Cr in AM #Chronic medical problems -diabetes: finger sticks and SSI -all other medications as prescribed DVT prophylaxis: heparin/ALPS/ambulation Code status: Full code Diabetic diet: Carb 3 As Ranked By This Provider Problem List: 1. Confused 2. Chest pain Core Measures/Misc (11/12) Acute Coronary Syndrome ACS Diagnosis: No Congestive Heart Failure Congestive Heart Failure Diagnosis No Cerebrovascular Accident CVA/TIA Diagnosis: Yes NIH Stroke Scale: Total 0 Date Last Known Well: 10/25/17 Symptom Start Date: 10/26/17 Symptom Start Time: 0800 tPA Risk/Benefit discussion I have discussed the risks, benefits, and alternatives of Alteplase treatment including: - If given promptly, can resolve or have major improvement in stroke symptoms. - Bleeding (hemorrhage) is the most common risk that can occur. - Bleeding may occur into the brain and cause~exterminator serious disability~ including - this is rare, affecting about 1% of patients. - Alternative treatments with proven benefit for patients with stroke include aspirin and care in a specialized unit where staff members pay careful attention to a variety of basic aspects of care. tPA given? No Current/Past Hx AFib/AFlutter No VTE (View Protocol) VTE Risk Factors Acute Medical Illness No Mechanical VTE Prophylaxis d/t N/A MechProphylax Ordered No VTE Pharm Prophylaxis d/t NA PharmProphylax ordered Sepsis (View protocol) Sepsis Present: No If YES complete Sepsis Event Note If YES complete Sepsis Event Note Harsh Hannah MD 10/26/17 2008: Core Measures/Misc (11/12) Sepsis (View protocol) If YES complete Sepsis Event Note If YES complete Sepsis Event Note Attending MD Review Statement Attending Statement Attending MD Statement: examined this patient, discuss w/resident/PA/ELECTRICAL INSTRUMENT TECHNICIAN, agreed w/resident/PA/ELECTRICAL INSTRUMENT TECHNICIAN, discussed with family, reviewed EMR data (avail), discussed with nursing, amended to note Attending Assessment/Plan: Patient is a very pleasant 62-year-old female with medical history significant for bipolar disorder, hypertension, hypothyroidism and atl-mdrjhml-tivlcoljj diabetes mellitus. She was in her normal state of health earlier this morning when she woke up on Sunday experiencing dizziness. She apparently fell while trying to get out of bed this morning. She called her PCP to make an appointment for evaluation. PCPs office called the daughter stating that the patient sounded confused on the phone and he went up was called 911. Daughter brought the patient to the emergency room. Daughter reports that patient's speech although mildly slurred at baseline due to her dentures appeared more slurred today. Patient was also confused according to her. Her slurred speech and confusion resolved by the time she arrived in the emergency room. Patient and daughter deny any evidence of facial asymmetry or drooling. Patient reports that she felt unsteady on her feet. She was evaluated in emergency room. Head CT showed no acute pathologies. She was then referred to the inpatient medical service for further evaluation. When I evaluated the patient she provided additional history of palpitations earlier on this week and chest discomfort yesterday. Discomfort happened at rest. Return sternal. 6/10 in intensity and pressure-like. She denies any similar pain in the past. Denies any associated shortness of breath. Denies cough. She does have family history of coronary artery disease in her parents. She also uses a history of undergoing cardiac cath about 15 years ago. She reports that at that time she required a stress test and during the stress test she passed out. She then went on to have a cardiac cath which per her own report was negative. No interventions were apparently done. Patient reports a recent changes in her regimen include change of on metformin to Januvia about a month ago due to worsening renal function. There has been no change in her psychiatric medications. On examination she is resting comfortably. Not in any acute distress. Speech is intact. She has no facial asymmetry. Creatinine is 2-12 are intact. Heart sounds are regular with no audible normal. Lungs acute auscultation bilaterally. Abdomen soft and nontender. She has no peripheral edema. Power is 5 over 5 in all extremities. Sensation is intact globally. Laboratory data shows worsening of her creatinine compared to baseline. EKG shows sinus rhythm with flattening T waves in the lateral leads. Problems: 1. Dizziness with fall. 2. Chest pain. 3. Abnormal EKG. 4. Uai-vipphca-narjiuzeg diabetes mellitus 5. Hypothyroidism 6. Bipolar disorder 7. Acute on chronic kidney disease Plan: -Admit to the telemetry service. -Trend troponins. First set is negative. Repeat EKG in a.m. Obtain cardiology consult. -Obtain echocardiogram to evaluate for any wall motion abnormalities that would signify an underlying coronary disease. -If above workup is negative follow-up with the cardiology service if she will benefit from a stress test to rule out underlying ischemia. -Check orthostatic vitals. -Hydrate with half normal saline at 75 mL an hour for another 1 L. Repeat serum chemistry in a.m. -Continue her medications for bipolar disorder and hypothyroidism. -Resume her Januvia. Monitor blood glucose levels. -In view of the complaints of slurred speech and high risk factors would recommend obtaining an MRI of the brain to rule out any underlying cerebral ischemia as etiology of her symptoms. Follow-up carotid Dopplers. Hitesh SANTANicole 10/26/172125: General Information and HPI Allergies/Medications Home Med list Acetaminophen 500 MG TABLET 1 TAB PO PRN PAIN (Reported) Albuterol Sulfate (Proair Hfa) 90 MCG HFA.AER.AD 2 PUF INH AD PRN ASTHMA ( Reported) Cholecalciferol (Vitamin D3) (Vitamin D) (Unknown Strength) TABLET (Unknown Dose) PO DAILY SUPPLEMENT (Reported) Dexlansoprazole (Dexilant) 60 MG CAP.DR.BP 1 CAP PO DAILY GI (Reported) Estradiol (Estrace) 0.01 % CREAM.APPL 0.5 GM VG ONCE A WEEK HRT (Reported) Fluticasone/Vilanterol (Breo Ellipta 200-25 Mcg INH) (Unknown Strength) BLST.W.DEV 1 PUFF INH QAM RESP. (Reported) Lamotrigine (Lamictal) 100 MG TABLET 4 TAB PO QPM MENTAL HEALTH (Reported) Levothyroxine Sodium (Tirosint) 150 MCG CAPSULE 1 TAB PO DAILY AC THYROID ( Reported) Liothyronine Sodium 5 MCG TABLET 1 TAB PO DAILY THYROID (Reported) Lorazepam 2 MG TABLET 1 TAB PO QHS ANXIETY (Reported) Mirabegron (Myrbetriq) 50 MG TAB.ER.24H 1 TAB PO DAILY BLADDER (Reported) Pregabalin (Lyrica) 100 MG CAPSULE 1 CAP PO BID PAIN (Reported) Quetiapine Fumarate (Seroquel) 50 MG TABLET 2 TAB PO QHS MENTAL HEALTH ( Reported) Quetiapine Fumarate (Seroquel) 50 MG TABLET 1 TAB PO 4XDAILY PRN ANXIETY ( Reported) Quetiapine Fumarate (Seroquel XR) 400 MG TAB.ER.24H 1 TAB PO QPM MENTAL HEALTH (Reported) Sertraline HCl (Zoloft) 50 MG TABLET 75 TAB PO QPM MENTAL HEALTH (Reported) Sitagliptin Phosphate (Januvia) 50 MG TABLET 1 TAB PO DAILY DM (Reported) Sumatriptan Succinate (Imitrex) 50 MG TABLET 1 TAB PO AD PRN HEADACHE ( Reported) Valsartan 160 MG TABLET 1 TAB PO DAILY BP (Reported) Verapamil HCl (Verapamil ER) 120 MG TABLET.ER 1 TAB PO DAILY HEART (Reported) Core Measures/Misc (11/12) Sepsis (View protocol) If YES complete Sepsis Event Note If YES complete Sepsis Event Note Resident Review Statement Resident Statement: examined this patient, discussed with data analysis intern, agreed with data analysis intern, reviewed EMR data (avail), discussed with nursing, reviewed images Other Findings: Ms. Wellington is a 62-year-old lady with past medical history significant for hypertension, asthma, bipolar disorder, diabetes, hyperparathyroidism status post parathyroidectomy, thyroid cancer status post thyroidectomy and CKD stage 3 (Li induced) presents with slurred speech and confusion starting this a.m. Per the daughter patient has baseline slurred speech from her dentures but this morning the son noticed that she was slurring more than usual. She went to her PCP for evaluation and was found to be confused by the PCP so was sent to ED. Patient also reports an episode of chest pain and palpitations this morning 08/05 , sharp, which resolved on its own and associated with bilateral arm numbness . Numbness continues to be there but getting better. Speech is back to her baseline. Patient also reports dizziness, which is worse with movement. Vitals on admission were temperature 98.2, heart rate 73, respiratory rate 18, BP 141/65 and O2 sats 97% on room air. Labs were remarkable for a creatinine of 2.[address] head was negative for any acute intracranial pathology. Problem list; 1. R/O CVA 2. Chest Pain r/o ACS 2. ELLA on CKD 3. Chronic medical conditions - Admit the patient to telemetry floor - Neurochecks Q2 hours - MRI brain - Carotid ultrasound - Troponin EKG 3 - Echocardiogram - Cardiology consult - PT eval - Patient passed bedside swallow, start on carbohydrate consistent diet. - Formal swallow eval in a.m. - Check A1c and lipid panel. - Patient already received 1 L of normal saline in the, continue gentle IV hydration - Check urine sodium and FeNa - Accu-Cheks and NovoLog sliding scale - Continue home medications DVT prophylaxis; Alps and subcu hip Patient is full code
[2017-10-26] MEDS ORDERED: MYRBETRIQ50 M1 PO (19:51)
--- NOTE | 2017-10-26 20:26 | ULTRASOUND REPORT ---
EXAMINATION: US DUPLEX CAROTID AND VERTEBRAL CLINICAL INFORMATION: Slurred speech. COMPARISON: None TECHNIQUE: Real-time ultrasound and Doppler techniques (integrating B-mode 2D vascular images, Doppler spectral analysis and color flow Doppler imaging) were utilized to interrogate the extracranial carotid and vertebral arteries bilaterally. The degree of stenosis determined by criteria similar to NASCET. FINDINGS: There is normal antegrade flow seen in both carotid arteries with no evidence of soft or hard atherosclerotic plaque. On the right peak systolic/end diastolic velocity distal CCA measures 86.8/19.3 cm/second. Peak systolic/end diastolic velocity proximal ICA measures 115/28.3 cm/second. There is no significant stenosis. On the left peak systolic/end diastolic velocity distal CCA measures 99.8/30.6 cm/second. Peak systolic/end diastolic velocity left proximal ICA measures 97.9/20.9 cm/second. There is no significant stenosis. There is normal antegrade flow seen in both vertebral arteries. IMPRESSION: No hemodynamically significant stenosis in either carotid artery. No atherosclerotic plaque seen in either carotid arteries. Normal antegrade flow seen in both vertebral arteries.
[2017-10-27 05:54] VITALS: BP 112/68
--- NOTE | 2017-10-27 06:52 | PN- Housestaff ---
See Addendum Subjective Follow-up For: Chest pain ?? TIA, r/o stroke Subjective: Patient feels better this am, says she does not feel like she is slurring and numbness in her left arm has completely resolved. reorts some soreness in her right upper extremity likely from the IV. Denies any chest pain, SOB or palpitation. Review of Systems Constitutional: Reports: no symptoms. EENTM: Reports: no symptoms. Cardiovascular: Reports: no symptoms. Respiratory: Reports: no symptoms. Gastrointestinal: Reports: no symptoms. Musculoskeletal: Reports: no symptoms. Neurological/Psychological: Reports: no symptoms. Objective Last 24 Hrs of Vital Signs/I&O Vital Signs Date Time Temp Pulse Resp B/P B/P Pulse O2 O2 Flow FiO2 Mean Ox Delivery Rate 10/27 0554 97.6 68 18 112/68 95 Room Air 10/26 2047 97.8 80 18 136/68 99 Room Air 10/26 1915 Room Air 10/26 1630 98.2 73 18 141/65 99 Room Air Intake & Output 10/27 0800 10/27 0000 10/26 1600 Intake Total 600 1325 Output Total 1200 Balance 600 125 Intake, IV 450 1075 Intake, Oral 150 250 Output, Urine 1200 Patient 211 lb Weight Weight Reported by Patient Measurement Method Physical Exam General Appearance: Alert, Oriented X3, Cooperative Skin: No Rashes, No Breakdown Cardiovascular: Regular Rate, Normal S1, Normal S2 Lungs: Normal Air Movement Abdomen: Normal Bowel Sounds, Soft, No Tenderness Neurological: Normal Speech, Strength at 5/5 X4 Ext, Normal Tone, Sensation Intact Current Medications: Current Medications Sig/Berto Start time Last Medication Dose Route Stop Time Status Admin Acetaminophen 650 MG Q6PRN PRN 10/26 1845 AC PO Acetaminophen 1,000 MG ONCE ONE 10/26 1830 DC 10/26 IV 10/26 183 1824 Acetaminophen 0 .STK-MED ONE 10/26 182 DC IV Albuterol Sulfate 2 PUF Q4P PRN 10/26 2114 AC INH Docusate Sodium 100 MG DAILY NEEDED PRN 10/26 2215 AC 10/26 PO 2238 Heparin Sodium 5,000 UNIT Q8 10/26 2200 AC 10/27 (Porcine) SC 0505 Insulin Aspart 0 TIDAC 10/27 0800 CAN SC Lamotrigine 400 MG QPM 10/26 2100 AC 10/26 PO 2311 Levothyroxine Sodium 0.15 MG DAILY AC 10/27 0700 AC 10/27 PO 050 Liothyronine Sodium 5 MCG DAILY AC 10/27 07 AC 10/27 PO 0505 Lorazepam 2 MG QPM 10/26 2099 AC 10/26 PO 2238 Losartan Potassium 100 MG DAILY 10/27 899 AC PO Omeprazole 40 MG DAILY 10/27 899 AC PO Omeprazole 40 MG DAILY AC 10/27 07 DC PO Pregabalin 100 MG BID 10/26 2099 AC 10/26 PO 2238 Quetiapine Fumarate 100 MG QAM 10/27 899 AC PO Quetiapine Fumarate 400 MG QPM 10/26 2145 AC 10/26 PO 231 Quetiapine Fumarate 50 MG QPM PRN 10/26 204 AC 10/26 PO 2311 Senna 187 MG AT BEDTIME 10/26 221 AC 10/26 PO 231 Sertraline HCl 75 MG QPM 10/26 214 AC 10/26 PO 231 Sitagliptin Phosphate 50 MG DAILY 10/27 899 AC PO Sodium Chloride 1,000 ML Q13H 10/26 221 AC 10/26 IV 2238 Sodium Chloride 1,000 ML BOLUS ONE 10/26 1800 DC 10/26 IV 10/26 1859 1824 Verapamil HCl 120 MG DAILY 10/27 899 AC PO Last 24 Hrs of Lab/Miller Results Last 24 Hrs of Labs/Mics: Laboratory Tests 10/27/17 0636: Troponin I Cancelled 10/27/17 0603: Sodium Pending, Potassium Pending, Chloride Pending, Carbon Dioxide Pending, Anion Gap Pending, BUN Pending, Creatinine Pending, BUN/Creatinine Ratio Pending , Troponin I Pending 10/27/17 0430: Troponin I Cancelled 10/27/17 0100: Troponin I < 0.01 10/26/17 2014: Urine Color STRAW, Urine Clarity CLEAR, Urine pH 6.0, Ur Specific [place] <= 1.005, Urine Protein NEG, Urine Ketones NEG, Urine Nitrite NEG, Urine Bilirubin NEG, Urine Urobilinogen 0.2, Ur Leukocyte Esterase NEG, Ur Microscopic EXAM NOT REQUIRED, Urine Hemoglobin NEG, Urine Glucose NEG 10/26/17 2014: Ur Random Creatinine 30.2, Ur Random Sodium 11 L, Ur Random Potassium 7.5, Fraction Sodium Excret 0.6 10/26/17 1632: Anion Gap 9, Estimated GFR 22 L, BUN/Creatinine Ratio 9.6, Glucose 112 H, Hemoglobin A1c Pending, Calcium 9.5, Troponin I < 0.01, Triglycerides 129, Cholesterol 223 H, LDL Cholesterol, Calc 131 H, HDL Cholesterol 67 H, Cholesterol/HDL Ratio 3, CBC w Diff NO MAN DIFF REQ, RBC 4.16 L, MCV 86.3, MCH 28.9, MCHC 33.5, RDW 16.0 H, MPV 7.5, Gran % 60.7, Lymphocytes % 28.2, Monocytes % 8.0, Eosinophils % 2.6, Basophils % 0.5, Absolute Granulocytes 4.5, Absolute Lymphocytes 2.1, Absolute Monocytes 0.6, Absolute Eosinophils 0.2, Absolute Basophils 0 Assessment/Plan Assessment: Ms. Chand is a 62-year-old lady with past medical history significant for hypertension, asthma, bipolar disorder, diabetes, hyperparathyroidism status post parathyroidectomy, thyroid cancer status post thyroidectomy and CKD stage 3 (Li induced) presents with slurred speech and confusion starting a.m of presentation. Problem list; 1. R/O CVA 2. Chest Pain r/o ACS 2. ELLA on CKD 3. Chronic medical conditions - Admit the patient to telemetry floor - Neurochecks Q2 hours - MRI brain - Carotid ultrasound negative - Troponin EKG 3 negative - Echocardiogram pending - Cardiology consult - PT eval - Patient passed bedside swallow, start on carbohydrate consistent diet. - Formal swallow eval in a.m. - Continue gentle IV hydration - Accu-Cheks and Continue Januvia. - Continue rest of home medications. DVT Prophylaxis; ALPS and S/C heparin patient is full code Problem List: 1. Confused 2. Chest pain Pain Ratin Pain Location: NA Pain Goal: Remain pain free Pain Plan: Pain Pathway Tomorrow's Labs & Rationales: None
--- NOTE | 2017-10-27 11:38 | MRI REPORT ---
EXAMINATION: MR BRAIN WITHOUT CONTRAST CLINICAL INFORMATION: Evaluate for stroke. Slurred speech. COMPARISON: CT scan of the head 10/26/2017. TECHNIQUE: MRI of the brain without contrast was obtained using routine sequences. FINDINGS: There is no acute territorial infarct. No pathological magnetic susceptibility artifact. Intracranial vascular flow voids are grossly maintained. There is no intracranial mass effect or midline shift. No abnormal extra-axial collection. Lateral and third ventricles are normal. No hydrocephalus. Midline structures including the cervicomedullary junction are normal. Bone marrow signal intensity is normal. There are trace mastoid tip effusions. Mild paranasal sinus disease primarily affecting the ethmoid air cells. Globes and orbits are symmetric. IMPRESSION: Unremarkable brain MRI. No evidence of acute territorial infarct or hemorrhage.
--- NOTE | 2017-10-27 12:11 | Cons- Cardiology ---
General Information and HPI Consulting Request Date of Consult: 10/27/17 Requested By: Harsh Hannah MD Reason for Consult: Confusion, presyncope, chest discomfort Source of Information: patient Exam Limitations: no limitations History of Present Illness: The patient is a 62-year-old female who is followed by Dr. Gee as her primary care doctor. She has no known cardiac history. Her past medical history is remarkable for hypertension, diabetes, prior thyroid cancer, bipolar disorder, chronic renal failure stage III, etc. The patient is admitted to the hospital via the emergency room with increasing confusion. As per the patient, her daughter noted her to be dizzy and having slurred speech yesterday. Patient felt like the room was spinning. She also had bilateral arm numbness, etc. She made an appointment to see her primary care physician. From there, she was also noted to have had brief episodes of chest discomfort 2 which both lasted less than 5 minutes and were sharp in nature and seemed to be noncardiac. She was transferred from her primary care physician's office to the emergency room. At that time she was noted to be increasingly confused. Apparently there were no other systemic symptoms noted. No other cardiac symptoms were noted. The patient was admitted to the hospital for further evaluation and treatment. Allergies/Medications Allergies: Coded Allergies: Cephalosporins (Severe, RESP DISTRESS, ITCHING 10/26/17) cefaclor (Severe, DYSPNEA, ITCHING 08/17/16) codeine (Severe, ITCHING, DYSPNEA, HALLUCINATE 08/17/16) morphine (Severe, ITCHING, DYSPNEA, HALLUCINATING, HIVES 10/26/17) oxycodone (Severe, ITCHING, DYSPNEA, HALLUCINATE 08/17/16) NSAIDS (Non-Steroidal Anti-Inflamma (DUE TO RENAL FUNCTION 10/26/17) aspirin (DUE TO RENAL FUNCTIONS 10/26/17) doxycycline (ITCHING ALL OVER BODY 07/25/17) Home Med List: Acetaminophen 500 MG TABLET 1 TAB PO PRN PAIN (Reported) Albuterol Sulfate (Proair Hfa) 90 MCG HFA.AER.AD 2 PUF INH AD PRN ASTHMA ( Reported) Cholecalciferol (Vitamin D3) (Vitamin D) (Unknown Strength) TABLET (Unknown Dose) PO DAILY SUPPLEMENT (Reported) Dexlansoprazole (Dexilant) 60 MG JOB.BP 1 CAP PO DAILY GI (Reported) Estradiol (Estrace) 0.01 % CREAM.APPL 0.5 GM VG ONCE A WEEK HRT (Reported) Fluticasone/Vilanterol (Breo Ellipta 200-25 Mcg INH) (Unknown Strength) BLST.W.DEV 1 PUFF INH QAM RESP. (Reported) Lamotrigine (Lamictal) 100 MG TABLET 4 TAB PO QPM MENTAL HEALTH (Reported) Levothyroxine Sodium (Tirosint) 150 MCG CAPSULE 1 TAB PO DAILY AC THYROID ( Reported) Liothyronine Sodium 5 MCG TABLET 1 TAB PO DAILY THYROID (Reported) Lorazepam 2 MG TABLET 1 TAB PO QHS ANXIETY (Reported) Mirabegron (Myrbetriq) 50 MG TAB.ER.24H 1 TAB PO DAILY BLADDER (Reported) Pregabalin (Lyrica) 100 MG CAPSULE 1 CAP PO BID PAIN (Reported) Quetiapine Fumarate (Seroquel) 50 MG TABLET 2 TAB PO QHS MENTAL HEALTH ( Reported) Quetiapine Fumarate (Seroquel) 50 MG TABLET 1 TAB PO 4XDAILY PRN ANXIETY ( Reported) Quetiapine Fumarate (Seroquel XR) 400 MG TAB.ER.24H 1 TAB PO QPM MENTAL HEALTH (Reported) Sertraline HCl (Zoloft) 50 MG TABLET 75 TAB PO QPM MENTAL HEALTH (Reported) Sitagliptin Phosphate (Januvia) 50 MG TABLET 1 TAB PO DAILY DM (Reported) Sumatriptan Succinate (Imitrex) 50 MG TABLET 1 TAB PO AD PRN HEADACHE ( Reported) Valsartan 160 MG TABLET 1 TAB PO DAILY BP (Reported) Verapamil HCl (Verapamil ER) 120 MG TABLET.ER 1 TAB PO DAILY HEART (Reported) Current Medications: Current Medications Sig/Berto Start time Last Medication Dose Route Stop Time Status Admin Acetaminophen 650 MG Q6PRN PRN 10/26 1845 AC PO Acetaminophen 1,000 MG ONCE ONE 10/26 1830 DC 10/26 IV 10/26 1830 182 Acetaminophen 0 .STK-MED ONE 10/26 1820 DC IV Albuterol Sulfate 2 PUF Q4P PRN 10/26 2114 AC INH Docusate Sodium 100 MG DAILY NEEDED PRN 10/26 2215 AC 10/26 PO 2238 Heparin Sodium 5,000 UNIT Q8 10/26 2200 AC 10/27 (Porcine) SC 0505 Insulin Aspart 0 TIDAC 10/27 08 CAN SC Lamotrigine 400 MG QPM 10/26 2100 AC 10/26 PO 2311 Levothyroxine Sodium 0.15 MG DAILY AC 10/27 07 AC 10/27 PO 0505 Liothyronine Sodium 5 MCG DAILY AC 10/27 07 AC 10/27 PO 0505 Lorazepam 1 MG ONCE ONE 10/27 899 DC 10/27 IV 10/27 09 0917 Lorazepam 2 MG QPM 10/26 2100 AC 10/26 PO 2238 Losartan Potassium 100 MG DAILY 10/27 899 AC 10/27 PO 0857 Omeprazole 40 MG DAILY 10/27 899 AC 10/27 PO 0850 Omeprazole 40 MG DAILY AC 10/27 07 DC PO Pregabalin 100 MG BID 10/26 2100 AC 10/27 PO 0850 Quetiapine Fumarate 100 MG QAM 10/27 09 AC 10/27 PO 0850 Quetiapine Fumarate 400 MG QPM 10/26 2145 AC 10/26 PO 2312 Quetiapine Fumarate 50 MG QPM PRN 10/26 2045 AC 10/26 PO 2311 Senna 187 MG AT BEDTIME 10/26 2215 AC 10/26 PO 2312 Sertraline HCl 75 MG QPM 10/26 2145 AC 10/26 PO 2312 Sitagliptin Phosphate 50 MG DAILY 10/27 899 AC 10/27 PO 0857 Sodium Chloride 1,000 ML Q13H 10/26 2215 AC 10/26 IV 2238 Sodium Chloride 1,000 ML BOLUS ONE 10/26 1800 DC 10/26 IV 10/26 1859 1824 Verapamil HCl 120 MG DAILY 10/27 899 AC 10/27 PO 0856 Past History Travel History Traveled to [place] past 21 day No Medical History Blood Transfusion Hx: Yes Neurological: NONE EENT: NONE Cardiovascular: hypertension Respiratory: asthma Gastrointestinal: NONE Hepatic: NONE Renal: NONE Musculoskeletal: NONE Psychiatric: bipolar disease Endocrine: diabetes Blood Disorders: NONE Cancer(s): thyroid cancer 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 Home Who Do You Live With? child Services at Home: None Smoking Status: Never Smoked ETOH Use: denies use (1-2 beers/month), occasional use Illicit Drug Use: denies illicit drug use Exam & Diagnostic Data Vital Signs and I&O Vital Signs Date Time Temp Pulse Resp B/P B/P Pulse O2 O2 Flow FiO2 Mean Ox Delivery Rate 10/28 0757 68 117/57 10/27 0856 68 117/57 10/27 0554 97.6 68 18 112/68 95 Room Air 10/26 2047 97.8 80 18 136/68 99 Room Air 10/26 1915 Room Air 10/26 1630 98.2 73 18 141/65 99 Room Air Intake & Output 10/27 1600 10/27 0000 10/26 1600 10/26 0000 Intake Total 600 1325 Output Total 1200 Balance 600 125 Intake, IV 450 1075 Intake, Oral 150 250 Output, Urine 1200 Patient 211 lb Weight Weight Reported by Patient Measurement Method Physical Exam: General Appearance: well developed/nourished, overweight white female alert, awake, oriented at the present time Head: normal HEENT: Normal Neck: supple, JVP normal, carotid upstrokes normal bilaterally, no bruits heard, no masses or thyromegaly Respiratory: chest non-tender, clear to auscultation and percussion bilaterally Cardiovascular: regular rate/rhythm, normal S1, S2, 1/6 systolic murmur Abdomen: normal bowel sounds, soft, non-tender Extremities: normal inspection, no edema Vascular: Pulses are 2+ and equal bilaterally Neurologic: Grossly normal/nonfocal Labs/Miller Results: Laboratory Tests 10/27 10/27 10/27 10/27 0636 0603 0430 0100 Chemistry Sodium (137 - 145 mmol/L) 142 Potassium (3.5 - 5.1 mmol/L) 4.0 Chloride (98 - 107 mmol/L) 111 H Carbon Dioxide (22 - 30 mmol/L) 26 Anion Gap (5 - 16) 5 BUN (7 - 17 mg/dL) 18 H Creatinine (0.5 - 1.0 mg/dL) 2.1 H Estimated GFR (>60 ml/min) 24 L BUN/Creatinine Ratio (7 - 25 %) 8.6 Troponin I (< 0.11 ng/ml) Cancelled < 0.01 Cancelled < 0.01 10/26 Urines Urine Color (YEL,AMB,STR) STRAW Urine Clarity (CLEAR) CLEAR Urine pH (5.0 - 8.0) 6.0 Ur Specific [place] (1.001 - 1.035) <= 1.005 Urine Protein (NEG,<30 MG/DL) NEG Urine Ketones (NEG) NEG Urine Nitrite (NEG) NEG Urine Bilirubin (NEG) NEG Urine Urobilinogen (0.1 - 1.0 EU/dl) 0.2 Ur Leukocyte Esterase (NEG) NEG Ur Microscopic EXAM NOT REQUIRED Urine Hemoglobin (NEG) NEG Ur Random Creatinine (mg/dL) 30.2 Ur Random Sodium (30 - 90 mmol/L) 11 L Ur Random Potassium (mmol/L) 7.5 Fraction Sodium Excret (<1% %) 0.6 Urine Glucose (N MG/DL) NEG 10/26 1632 Chemistry Sodium (137 - 145 mmol/L) 140 Potassium (3.5 - 5.1 mmol/L) 3.5 Chloride (98 - 107 mmol/L) 105 Carbon Dioxide (22 - 30 mmol/L) 26 Anion Gap (5 - 16) 9 BUN (7 - 17 mg/dL) 22 H Creatinine (0.5 - 1.0 mg/dL) 2.3 H Estimated GFR (>60 ml/min) 22 L BUN/Creatinine Ratio (7 - 25 %) 9.6 Glucose (65 - 99 mg/dL) 112 H Hemoglobin A1c (4.2 - 5.8 %) Pending Calcium (8.4 - 10.2 mg/dL) 9.5 Troponin I (< 0.11 ng/ml) < 0.01 Triglycerides (<150 mg/dL) 129 Cholesterol (<200 MG/DL) 223 H LDL Cholesterol, Calc (65 - 129 mg/dL) 131 H HDL Cholesterol (40 - 60 mg/dL) 67 H Cholesterol/HDL Ratio (0.00 - 4.23 %) 3 Hematology CBC w Diff NO MAN DIFF REQ WBC (4.8 - 10.8 /CUMM) 7.4 RBC (4.20 - 5.40 /CUMM) 4.16 L Hgb (12.0 - 16.0 G/DL) 12.0 Hct (37 - 47 %) 35.8 L MCV (81.0 - 99.0 FL) 86.3 MCH (27.0 - 31.0 PG) 28.9 MCHC (33.0 - 37.0 G/DL) 33.5 RDW (11.5 - 14.5 %) 16.0 H Plt Count (130 - 400 /CUMM) 257 MPV (7.4 - 10.4 FL) 7.5 Gran % (42.2 - 75.2 %) 60.7 Lymphocytes % (20.5 - 51.1 %) 28.2 Monocytes % (1.7 - 9.3 %) 8.0 Eosinophils % (0 - 5 %) 2.6 Basophils % (0.0 - 2.0 %) 0.5 Absolute Granulocytes (1.4 - 6.5 /CUMM) 4.5 Absolute Lymphocytes (1.2 - 3.4 /CUMM) 2.1 Absolute Monocytes (0.10 - 0.60 /CUMM) 0.6 Absolute Eosinophils (0.0 - 0.7 /CUMM) 0.2 Absolute Basophils (0.0 - 0.2 /CUMM) 0 Diagnostic Data Other Results Head CT: FINDINGS: There is no evidence of acute intracranial hemorrhage or territorial infarction. No abnormal mass effect or midline shift is seen. Peng to white matter differentiation is well preserved. No extra-axial fluid collections are identified. There is atrophy with prominence of the ventricles and the sulci and hypodensity of the periventricular white matter due to chronic small vessel ischemic disease. There is vascular calcifications of the internal carotid arteries bilaterally. The osseous structures and soft tissues are normal. The mastoid air cells and visualized portions of the paranasal sinuses are well aerated. IMPRESSION: No acute intracranial pathology. MRI head: FINDINGS: There is no acute territorial infarct. No pathological magnetic susceptibility artifact. Intracranial vascular flow voids are grossly maintained. There is no intracranial mass effect or midline shift. No abnormal extra-axial collection. Lateral and third ventricles are normal. No hydrocephalus. Midline structures including the cervicomedullary junction are normal. Bone marrow signal intensity is normal. There are trace mastoid tip effusions. Mild paranasal sinus disease primarily affecting the ethmoid air cells. Globes and orbits are symmetric. IMPRESSION: Unremarkable brain MRI. No evidence of acute territorial infarct or hemorrhage. Carotid ultrasound: FINDINGS: There is normal antegrade flow seen in both carotid arteries with no evidence of soft or hard atherosclerotic plaque. On the right peak systolic/end diastolic velocity distal CCA measures 86.8/19.3 cm/second. Peak systolic/end diastolic velocity proximal ICA measures 115/28.3 cm/second. There is no significant stenosis. On the left peak systolic/end diastolic velocity distal CCA measures 99.8/30.6 cm/second. Peak systolic/end diastolic velocity left proximal ICA measures 97.9/20.9 cm/second. There is no significant stenosis. There is normal antegrade flow seen in both vertebral arteries. IMPRESSION: No hemodynamically significant stenosis in either carotid artery. No atherosclerotic plaque seen in either carotid arteries. Normal antegrade flow seen in both vertebral arteries. Assessment/Plan Assessment/Plan Assessment: 1. Atypical chest discomfort-by history, the patient's symptoms seem to be noncardiac in nature. There is no evidence by ECG or troponins of any acute event. 2. Altered mental status; possible TIA 3. Acute on chronic renal failure 4. History of diabetes Recommendations: -Continue as per the medical team. -Echocardiogram pending -Carotid ultrasound, MRI of the head, head CT all unrevealing -Out of bed as tolerated -Please check orthostatic heart rate and blood pressure -Maintain patient on awake overnight monitor for now. No arrhythmias have been detected as of this point in time. Consult Acknowledgment - Thank you for your consult request.
[2017-10-27 14:28] VITALS: BP 106/58; BP 144/86
--- NOTE | 2017-10-27 15:37 | Cons- Neurology ---
General Information and HPI Consulting Request Date of Consult: 10/27/17 Requested By: Brielle SANTA,Harsh History of Present Illness: 62-year-old female who yesterday after getting out of bed noted that she was imbalanced As she got out of bed she hit a wall to the right side There was no head injury or injury As she walks she again veered to the right side and hit a door jam She was able to walk to the kitchen "holding on" She noted that she was dizzy by which she seemed to remain vertigo Was late has noted that she had slowed speech She then saw her physician and was told that she was confused although patient did not think so She was then brought to hospital where she continued to have the above symptoms She now notes that she is relatively comfortable lying down but gets imbalance and dizzy when she sits up She has been unable to get out of bed due to recurrent dizzy sensations and attempts at getting out of the bed have been unsuccessful Usually just falls back into the bed No history of head trauma or loss of consciousness No problems with use of the limbs Allergies/Medications Allergies: Coded Allergies: Cephalosporins (Severe, RESP DISTRESS, ITCHING 10/26/17) cefaclor (Severe, DYSPNEA, ITCHING 08/17/16) codeine (Severe, ITCHING, DYSPNEA, HALLUCINATE 08/17/16) morphine (Severe, ITCHING, DYSPNEA, HALLUCINATING, HIVES 10/26/17) oxycodone (Severe, ITCHING, DYSPNEA, HALLUCINATE 08/17/16) NSAIDS (Non-Steroidal Anti-Inflamma (DUE TO RENAL FUNCTION 10/26/17) aspirin (DUE TO RENAL FUNCTIONS 10/26/17) doxycycline (ITCHING ALL OVER BODY 07/25/17) Home Med List: Acetaminophen 500 MG TABLET 1 TAB PO PRN PAIN (Reported) Albuterol Sulfate (Proair Hfa) 90 MCG HFA.AER.AD 2 PUF INH AD PRN ASTHMA ( Reported) Cholecalciferol (Vitamin D3) (Vitamin D) (Unknown Strength) TABLET (Unknown Dose) PO DAILY SUPPLEMENT (Reported) Dexlansoprazole (Dexilant) 60 MG CAP.DRMiguel AngelBP 1 CAP PO DAILY GI (Reported) Estradiol (Estrace) 0.01 % CREAM.APPL 0.5 GM VG ONCE A WEEK HRT (Reported) Fluticasone/Vilanterol (Breo Ellipta 200-25 Mcg INH) (Unknown Strength) BLST.W.DEV 1 PUFF INH QAM RESP. (Reported) Lamotrigine (Lamictal) 100 MG TABLET 4 TAB PO QPM MENTAL HEALTH (Reported) Levothyroxine Sodium (Tirosint) 150 MCG CAPSULE 1 TAB PO DAILY AC THYROID ( Reported) Liothyronine Sodium 5 MCG TABLET 1 TAB PO DAILY THYROID (Reported) Lorazepam 2 MG TABLET 1 TAB PO QHS ANXIETY (Reported) Mirabegron (Myrbetriq) 50 MG TAB.ER.24H 1 TAB PO DAILY BLADDER (Reported) Pregabalin (Lyrica) 100 MG CAPSULE 1 CAP PO BID PAIN (Reported) Quetiapine Fumarate (Seroquel) 50 MG TABLET 2 TAB PO QHS MENTAL HEALTH ( Reported) Quetiapine Fumarate (Seroquel) 50 MG TABLET 1 TAB PO 4XDAILY PRN ANXIETY ( Reported) Quetiapine Fumarate (Seroquel XR) 400 MG TAB.ER.24H 1 TAB PO QPM MENTAL HEALTH (Reported) Sertraline HCl (Zoloft) 50 MG TABLET 75 TAB PO QPM MENTAL HEALTH (Reported) Sitagliptin Phosphate (Januvia) 50 MG TABLET 1 TAB PO DAILY DM (Reported) Sumatriptan Succinate (Imitrex) 50 MG TABLET 1 TAB PO AD PRN HEADACHE ( Reported) Valsartan 160 MG TABLET 1 TAB PO DAILY BP (Reported) Verapamil HCl (Verapamil ER) 120 MG TABLET.ER 1 TAB PO DAILY HEART (Reported) Current Medications: Current Medications Sig/Berto Start time Last Medication Dose Route Stop Time Status Admin Acetaminophen 650 MG Q6PRN PRN 10/26 1845 AC PO Acetaminophen 1,000 MG ONCE ONE 10/26 1830 DC 10/26 IV 10/26 183 1824 Acetaminophen 0 .STK-MED ONE 10/26 182 DC IV Albuterol Sulfate 2 PUF Q4P PRN 10/26 2115 AC INH Bisacodyl 10 MG ONCE ONE 10/27 1300 CAN [place] 10/27 1301 Docusate Sodium 100 MG BID 10/27 2100 AC PO Docusate Sodium 100 MG DAILY NEEDED PRN 10/26 2215 DC 10/26 PO 2238 Heparin Sodium 5,000 UNIT Q8 10/26 2200 AC 10/27 (Porcine) SC 1445 Insulin Aspart 0 TIDAC 10/27 0800 CAN SC Lamotrigine 400 MG QPM 10/26 2100 AC 10/26 PO 2311 Levothyroxine Sodium 0.15 MG DAILY AC 10/27 0700 AC 10/27 PO 0505 Liothyronine Sodium 5 MCG DAILY AC 10/27 0700 AC 10/27 PO 0505 Lorazepam 1 MG ONCE ONE 10/27 0900 DC 10/27 IV 10/27 0901 0917 Lorazepam 2 MG QPM 10/26 2100 AC 10/26 PO 2238 Losartan Potassium 100 MG DAILY 10/27 09 AC 10/27 PO 0857 Omeprazole 40 MG DAILY 10/27 09 AC 10/27 PO 0850 Omeprazole 40 MG DAILY AC 10/27 07 DC PO Polyethylene Glycol 17 GM DAILY 10/27 1445 AC PO Pregabalin 100 MG BID 10/26 2100 AC 10/27 PO 0850 Quetiapine Fumarate 100 MG QAM 10/27 0900 AC 10/27 PO 0850 Quetiapine Fumarate 400 MG QPM 10/26 2145 AC 10/26 PO 2312 Quetiapine Fumarate 50 MG QPM PRN 10/26 2045 AC 10/26 PO 2311 Senna 187 MG AT BEDTIME 10/26 2215 AC 10/26 PO 2312 Sertraline HCl 75 MG QPM 10/26 2145 AC 10/26 PO 2312 Sitagliptin Phosphate 50 MG DAILY 10/27 09 AC 10/27 PO 0857 Sodium Chloride 1,000 ML Q13H 10/26 2215 AC 10/27 IV 1427 Sodium Chloride 1,000 ML BOLUS ONE 10/26 1800 DC 10/26 IV 10/26 1859 1824 Verapamil HCl 120 MG DAILY 10/27 09 AC 10/27 PO 0856 Review of Systems Review of Systems: Occasional migraine headaches Occasional sense of diplopia Mild weight loss recently 7 pounds Occasional shortness of breath No significant chest pains Mild nausea but no vomiting No incontinence No focal weakness of the lower extremities No rashes No significant swelling lower extremities No paresthesia Past History Travel History Traveled to [place] past 21 day No Medical History Blood Transfusion Hx: Yes Neurological: NONE EENT: NONE Cardiovascular: hypertension Respiratory: asthma Gastrointestinal: NONE Hepatic: NONE Renal: NONE Musculoskeletal: NONE Psychiatric: bipolar disease Endocrine: diabetes Blood Disorders: NONE Cancer(s): thyroid cancer CANDLE WRAPPER/Reproductive: NONE Surgical History Surgical History: appendectomy, hysterectomy Psychosocial History Where Do You Live? Home Who Do You Live With? child Services at Home: None Smoking Status: Never Smoked ETOH Use: denies use (1-2 beers/month), occasional use Illicit Drug Use: denies illicit drug use Exam & Diagnostic Data Vital Signs and I&O Vital Signs Date Time Temp Pulse Resp B/P B/P Pulse O2 O2 Flow FiO2 Mean Ox Delivery Rate 10/27 1428 98.6 85 18 106/58 96 Room Air 10/27 0857 68 117/57 10/27 0856 68 117/57 10/27 0554 97.6 68 18 112/68 95 Room Air 10/26 2047 97.8 80 18 136/68 99 Room Air 10/26 1915 Room Air 10/26 1630 98.2 73 18 141/65 99 Room Air Intake & Output 10/27 1600 10/27 0800 10/27 0000 Intake Total 610 174 9586 Output Total 1300 1200 Balance -400 600 125 Intake, IV 393 801 4003 Intake, Oral 300 150 250 Number 0 Bowel Movements Output, Urine 1300 1200 Patient 211 lb Weight Weight Reported by Patient Measurement Method Family history shows both parents had COPD Patient alert and oriented and in no distress Heart sounds normal no carotid bruits distal pulses intact No dysarthria Extraocular movements full pupils equal reactive fundi benign visual scherer intact no facial weakness or facial sensory loss Felipa gels intact hearing grossly intact bilaterally Normal tone and strength upper and lower extremities No sensory loss to light touch bilateral upper and lower extremities Gross motor strength upper and lower extremities intact Coordinative functions upper extremities intact Patient able to sit up but states that she is dizzy No nystagmus noted Hallpike David maneuver did not induce nystagmus Last 48 Hours of Lab Results: Laboratory Tests 10/27 10/27 10/27 10/27 0636 0603 0430 0100 Chemistry Sodium (137 - 145 mmol/L) 142 Potassium (3.5 - 5.1 mmol/L) 4.0 Chloride (98 - 107 mmol/L) 111 H Carbon Dioxide (22 - 30 mmol/L) 26 Anion Gap (5 - 16) 5 BUN (7 - 17 mg/dL) 18 H Creatinine (0.5 - 1.0 mg/dL) 2.1 H Estimated GFR (>60 ml/min) 24 L BUN/Creatinine Ratio (7 - 25 %) 8.6 Troponin I (< 0.11 ng/ml) Cancelled < 0.01 Cancelled < 0.01 10/26 Urines Urine Color (YEL,AMB,STR) STRAW Urine Clarity (CLEAR) CLEAR Urine pH (5.0 - 8.0) 6.0 Ur Specific [place] (1.001 - 1.035) <= 1.005 Urine Protein (NEG,<30 MG/DL) NEG Urine Ketones (NEG) NEG Urine Nitrite (NEG) NEG Urine Bilirubin (NEG) NEG Urine Urobilinogen (0.1 - 1.0 EU/dl) 0.2 Ur Leukocyte Esterase (NEG) NEG Ur Microscopic EXAM NOT REQUIRED Urine Hemoglobin (NEG) NEG Ur Random Creatinine (mg/dL) 30.2 Ur Random Sodium (30 - 90 mmol/L) 11 L Ur Random Potassium (mmol/L) 7.5 Fraction Sodium Excret (<1% %) 0.6 Urine Glucose (N MG/DL) NEG 10/26 1632 Chemistry Sodium (137 - 145 mmol/L) 140 Potassium (3.5 - 5.1 mmol/L) 3.5 Chloride (98 - 107 mmol/L) 105 Carbon Dioxide (22 - 30 mmol/L) 26 Anion Gap (5 - 16) 9 BUN (7 - 17 mg/dL) 22 H Creatinine (0.5 - 1.0 mg/dL) 2.3 H Estimated GFR (>60 ml/min) 22 L BUN/Creatinine Ratio (7 - 25 %) 9.6 Glucose (65 - 99 mg/dL) 112 H Hemoglobin A1c (4.2 - 5.8 %) Pending Calcium (8.4 - 10.2 mg/dL) 9.5 Troponin I (< 0.11 ng/ml) < 0.01 Triglycerides (<150 mg/dL) 129 Cholesterol (<200 MG/DL) 223 H LDL Cholesterol, Calc (65 - 129 mg/dL) 131 H HDL Cholesterol (40 - 60 mg/dL) 67 H Cholesterol/HDL Ratio (0.00 - 4.23 %) 3 Hematology CBC w Diff NO MAN DIFF REQ WBC (4.8 - 10.8 /CUMM) 7.4 RBC (4.20 - 5.40 /CUMM) 4.16 L Hgb (12.0 - 16.0 G/DL) 12.0 Hct (37 - 47 %) 35.8 L MCV (81.0 - 99.0 FL) 86.3 MCH (27.0 - 31.0 PG) 28.9 MCHC (33.0 - 37.0 G/DL) 33.5 RDW (11.5 - 14.5 %) 16.0 H Plt Count (130 - 400 /CUMM) 257 MPV (7.4 - 10.4 FL) 7.5 Gran % (42.2 - 75.2 %) 60.7 Lymphocytes % (20.5 - 51.1 %) 28.2 Monocytes % (1.7 - 9.3 %) 8.0 Eosinophils % (0 - 5 %) 2.6 Basophils % (0.0 - 2.0 %) 0.5 Absolute Granulocytes (1.4 - 6.5 /CUMM) 4.5 Absolute Lymphocytes (1.2 - 3.4 /CUMM) 2.1 Absolute Monocytes (0.10 - 0.60 /CUMM) 0.6 Absolute Eosinophils (0.0 - 0.7 /CUMM) 0.2 Absolute Basophils (0.0 - 0.2 /CUMM) 0 Imaging/Other Studies: MRI brain: IMPRESSION: Unremarkable brain MRI. No evidence of acute territorial infarct or hemorrhage. Assessment/Plan Assessment: Symptoms include imbalance, dizziness, vertigo, difficulty walking Possible labyrinthine disorder Possible vertebral ischemia although MRI scan of brain did not show any significant abnormalities Patient states no medication changes made recently Would however obtain lamotrigine blood level Recommendations: PT for gait evaluation Attempt sitting in a chair Consult Acknowledgment - Thank you for your consult request.
[2017-10-27 21:53] VITALS: BP 118/60
[2017-10-27 22:00] VITALS: BP 122/76
[2017-10-28 06:05] VITALS: BP 118/72
--- NOTE | 2017-10-28 08:42 | PN- Housestaff ---
Cris Triplett 10/28/17 0842: Subjective Follow-up For: Altered mental status Subjective: Overnight patient was normal sinus rhythm with heart rate range between 70-82. Patient states she is feeling much better, she is complaining that she becomes lightheaded when she sits up, states she was having dizziness while working with physical therapy this morning especially when he came to terms. Patient states she was turning very slowly but she would become dizzy and needed to stop rebounds herself before continuing to walk back back to her chair. Patient denies changes in hearing, ringing of her ears, nausea and vomiting. Review of Systems Constitutional: Denies: chills, diaphoresis, fever. Cardiovascular: Denies: chest pain, orthopena. Respiratory: Denies: cough, short of breath. Gastrointestinal: Denies: abdominal pain, changes in stool. Objective Last 24 Hrs of Vital Signs/I&O Vital Signs Date Time Temp Pulse Resp B/P B/P Pulse O2 O2 Flow FiO2 Mean Ox Delivery Rate 10/28 0832 98.4 79 18 118/72 10/28 0832 98.4 79 18 118/72 10/28 0605 98.4 79 18 118/72 97 Room Air 10/27 2200 72 122/76 10/27 2153 98.7 86 18 118/60 97 Room Air 10/27 1428 98.6 85 18 106/58 96 Room Air Intake & Output 10/28 1600 /02 0800 10/28 0000 Intake Total 720 345 Output Total 800 1300 Balance -80 -955 Intake, IV 600 225 Intake, Oral 120 120 Output, Urine 800 1300 Patient 213 lb Weight Physical Exam General Appearance: Alert, Oriented X3, Cooperative Cardiovascular: Regular Rate, Normal S1, Normal S2 Lungs: Clear to Auscultation, Normal Air Movement Abdomen: Normal Bowel Sounds, Soft, No Tenderness Extremities: No Cyanosis, No Edema, Normal Pulses Assessment/Plan Assessment: Ms. Chand is a 62-year-old lady with past medical history significant for hypertension, asthma, bipolar disorder, diabetes, hyperparathyroidism status post parathyroidectomy, thyroid cancer status post thyroidectomy and CKD stage 3 (Li induced) presents with slurred speech and confusion starting a.m of presentation. Problem list; 1. R/O CVA 2. Chest Pain r/o ACS 2. ELLA on CKD 3. Chronic medical conditions - Admit the patient to telemetry floor - MRI brain- unremarkable, no evidence of acute territorial infract or hemorrhage - ct head and carotid u/s negative. - Carotid ultrasound negative - Troponin EKG 3 negative - Echocardiogram pending - Cardiology consult - check orthostats - PT eval-recommend rolling walker - Patient passed bedside swallow, start on carbohydrate consistent diet. - Formal swallow eval in a.m.- minimal aspiration risk, adv diet as toelrated - Accu-Cheks and Continue Januvia. - Continue rest of home medications. DVT Prophylaxis; ALPS and S/C heparin patient is full code After talking with patient this morning and following the results negative for evidence of stroke, it seems patients symptoms are related to vestibular dysfuction. PT is working with patient to improve balance and vestibular function, patient will refer outpatient ENT Follow up for futher evaluation. Plan to discharge tomorrow. Problem List: 1. Confused Pain Ratin Pain Location: n/a Pain Goal: Remain pain free Pain Plan: tylenol Tomorrow's Labs & Rationales: Reinier Delgado MD 10/28/17 1310: Attending MD Review Statement Attending Statement Attending MD Statement: examined this patient, discuss w/resident/PA/COMMERCIAL ANNOUNCER, agreed w/resident/PA/COMMERCIAL ANNOUNCER, reviewed EMR data (avail) Attending Assessment/Plan: Patient seen and examined at bedside. Agree with resident assessment and plan. Patient feels well when lying still, but feels vertigo when leaning forward or moving her head quickly. Her neuro exam is normal with normal cerebellar tests. No nystagmus noted. CT and MRI head are negative. Likely peripheral vertigo. Plan - Continue on telemetry - Follow neurology and cardiology recommendations - PT eval for vestibular training - Continue home medications - DVT PPx
[2017-10-28 14:41] VITALS: BP 124/82
[2017-10-28 22:02] VITALS: BP 138/70
[2017-10-29 06:30] VITALS: BP 122/66
--- NOTE | 2017-10-29 07:43 | PN- Housestaff ---
[facility] Subjective Follow-up For: Peripheral vertigo Tele-Events Since Last Visit: No overnight events. Heart rate remained in 70s. Subjective: No overnight events. Patient remained afebrile. Seen and examined this morning. She denied chest pain, short of breath, nausea, vomiting, chill, fever , numbness, weakness, tingling, abdominal pain dysuria. Patient reported having dizziness whenever she tried to walk around or move her head. Also reported having intermittent nausea whenever she feels dizzy. She is walking around with the help of walker. She is eating drinking orally. Review of Systems Constitutional: Denies: chills, fever. EENTM: Reports: no symptoms. Cardiovascular: Denies: chest pain, palpitations. Respiratory: Denies: cough, short of breath, sputum production. Gastrointestinal: Reports: nausea. Denies: abdominal pain, diarrhea, vomiting. Genitourinary: Reports: no symptoms. Neurological/Psychological: Reports: see HPI. Objective Last 24 Hrs of Vital Signs/I&O Vital Signs Date Time Temp Pulse Resp B/P B/P Pulse O2 O2 Flow FiO2 Mean Ox Delivery Rate 10/29 0630 98.6 78 18 122/66 97 Room Air 10/28 2202 98.7 70 15 138/70 97 / 1441 98.4 80 18 124/82 96 Room Air / 0832 98.4 79 18 118/72 /02 0832 98.4 79 18 118/72 Intake & Output 10/29 1600 /03 0800 10/29 0000 Intake Total 600 600 Output Total Balance 600 600 Intake, Oral 600 600 Patient 230 lb Weight Physical Exam General Appearance: Alert, Oriented X3, Cooperative Skin Temp/Moisture Exam: Warm/Dry Sepsis Skin Exam (color): Normal for Ethnicity HEENT: Atraumatic, PERRLA, EOMI Neck: Supple Cardiovascular: Normal S1, Normal S2 Lungs: Clear to Auscultation Abdomen: Soft, No Tenderness Neurological: Normal Speech, Strength at 5/5 X4 Ext, Normal Tone Extremities: No Edema Assessment/Plan Assessment: 62-year-old lady with past medical history significant for hypertension, asthma, bipolar disorder, diabetes, hyperparathyroidism status post parathyroidectomy, thyroid cancer status post thyroidectomy and CKD stage 3 ([place] induced) presents with slurred speech and confusion. Following the patient on tele floor for following problems: Peripheral vertigo: -Patient probably has peripheral vertigo as she reported feeling dizziness while walking and on moving her head. Also feeling intermittent nausea. -Her MRA head, CT scan head and Doppler study carotid remained negative for any stroke or carotid stenosis. Her cerebellar exam remained negative. -Her troponin EKG remained negative. -Echocardiogram is pending -PT evaluation and vestibular training. -Follow-up neuro and cardiology recommendations. -Continue diabetic diet History of hypertension: -Continue losartan and verapamil History of diabetes: -Continue sitagliptin -Continue Accu-Cheks, her morning blood sugar is 96. -Continue diabetic diet. History of bipolar disorder: -Continue quetiapine 100 mg in a.m. and 400 mg in p.m. -Continue lamotrigine Acute on chronic kidney injury: Resolved -Possibly due to dehydration. -Chronic kidney disease stage III -Today creatinine is 1.8 and GFR is 29 History of hypothyroidism: -Continue levothyroxine DVT prophylaxis: Mechanical and subcutaneous heparin CODE STATUS: Full code Problem List: 1. Vertigo 2. Wchox-di-zehctxa kidney injury Pain Ratin Pain Location: none Pain Goal: Remain pain free Pain Plan: pain payhway Tomorrow's Labs & Rationales: none Reinier Adams MD 10/29/17 1424: Attending MD Review Statement Attending Statement Attending MD Statement: examined this patient, discuss w/resident/PA/LAUNDRY MARKER SUPERVISOR, agreed w/resident/PA/LAUNDRY MARKER SUPERVISOR, reviewed EMR data (avail) Attending Assessment/Plan: Patient seen and examined at bedside. Agree with resident assessment and plan. Improving, vertigo at rest is resolved. When she moves her head quickly, she feels the room spinning. Was able to work with PT today. Her neuro exam is normal with normal cerebellar tests. No nystagmus noted. CT and MRI head are negative. Likely peripheral vertigo. Plan - Discontinue telemetry, however do not transfer as will likely be discharged in the morning - Follow neurology and cardiology recommendations - PT eval for vestibular training - Continue home medications - DVT PPx - Home with home PT tomorrow
--- NOTE | 2017-10-29 11:51 | PN- Cardiology ---
Subjective Subjective: Stable. No new cardiac symptoms. No significant arrhythmias detected. Slight improvement in vestibular symptoms Objective Vital Signs and I&Os Vital Signs Date Time Temp Pulse Resp B/P B/P Pulse O2 O2 Flow FiO2 Mean Ox Delivery Rate 10/29 818 98.6 78 18 122/66 10/29 0819 98.6 78 18 122/66 10/29 0800 Room Air 10/29 0630 98.6 78 18 122/66 97 Room Air 10/28 2202 98.7 70 15 138/70 97 10/28 1441 98.4 80 18 124/82 96 Room Air Intake & Output 10/29 1600 10/29 0800 10/29 0000 10/28 1600 10/28 0800 10/28 0000 Intake Total 814 846 5883 720 345 Output Total 3503 313 8741 Balance 600 600 285 -80 -955 Intake, IV 525 600 225 Intake, Oral 600 600 860 120 120 Output, Urine 4266 748 2147 Patient 230 lb 213 lb Weight Current Medications: Current Medications Sig/Berto Start time Last Medication Dose Route Stop Time Status Admin Acetaminophen 650 MG Q6PRN PRN 10/26 1845 AC 10/28 PO 0144 Albuterol Sulfate 2 PUF Q4P PRN 10/26 2115 AC 10/28 INH 2134 Bisacodyl 10 MG DAILY PRN 10/28 2130 AC 10/29 [place] 0626 Docusate Sodium 100 MG BID 10/27 2100 AC 10/29 PO 0818 Heparin Sodium 5,000 UNIT Q8 10/26 2200 AC 10/29 (Porcine) SC 0626 Lamotrigine 400 MG QPM 10/26 2100 AC 10/28 PO 2128 Levothyroxine Sodium 0.15 MG DAILY AC 10/27 07 AC 10/29 PO 0626 Liothyronine Sodium 5 MCG DAILY AC 10/27 07 AC 10/29 PO 0626 Lorazepam 2 MG QPM 10/26 2100 AC 10/28 PO 2128 Losartan Potassium 100 MG DAILY 10/27 899 AC 10/29 PO 0819 Omeprazole 40 MG DAILY 10/27 899 AC 10/29 PO 0820 Polyethylene Glycol 17 GM DAILY 10/27 1445 AC 10/29 PO 0818 Pregabalin 100 MG BID 10/26 2100 AC 10/29 PO 0818 Quetiapine Fumarate 100 MG QAM 10/27 899 AC 10/29 PO 0818 Quetiapine Fumarate 400 MG QPM 10/26 2145 AC 10/28 PO 2128 Quetiapine Fumarate 50 MG QPM PRN 10/26 2045 AC 10/26 PO 2311 Senna 187 MG AT BEDTIME 10/26 2215 AC 10/28 PO 2128 Senna/Docusate Sodium 2 TAB ONCE ONE 10/28 1500 DC 10/28 PO 10/28 1501 1421 Sertraline HCl 75 MG QPM 10/26 2145 AC 10/28 PO 212 Sitagliptin Phosphate 50 MG DAILY 10/27 899 AC 10/29 PO 0818 Sodium Chloride 1,000 ML Q13H 10/26 2215 DC 10/28 IV 1718 Verapamil HCl 120 MG DAILY 10/27 899 AC 10/29 PO 0819 Results Last 48 Hrs of Labs/Mics: Laboratory Tests 10/29/17 0610: Anion Gap 6, Estimated GFR 29 L, BUN/Creatinine Ratio 11.1 10/28/17 0753: Anion Gap 7, Estimated GFR 29 L, BUN/Creatinine Ratio 11.1, Lamotrigine Pending Assessment/Plan Assessment/Plan Assessment: 1. Atypical chest discomfort-by history, the patient's symptoms seem to be noncardiac in nature. There is no evidence by ECG or troponins of any acute event. 2. Altered mental status; possible TIA 3. Acute on chronic renal failure 4. History of diabetes 5. Positional dizziness consistent with vestibular symptom Recommendations: -Continue as per the medical team. -Echocardiogram noted -Carotid ultrasound, MRI of the head, head CT all unrevealing -Out of bed as tolerated; continue PT -From a cardiac standpoint the patient can come off telemetry monitoring -Eventual consideration for outpatient pharmacologic nuclear stress test at some point in the future. Continue telemetry? No
--- NOTE | 2017-10-29 14:25 | Discharge Summary ---
Visit Information Visit Dates Admission Date: 10/26/17 Discharge Date: 10/30/17 Hospital Course Course Attending Physician: Harsh Hannah MD Primary Care Physician: Markie Gee MD Hospital Course: 62 YO F with PMH significant for hypertension, asthma, bipolar disorder, diabetes, hyperparathyroidism status post parathyroidectomy, thyroid cancer status post thyroidectomy and CKD stage 3 ([place] induced) presents with slurred speech and confusion. ED course: Vitals: Temperature 98.2, pulse 73, respiratory rate 18, blood pressure 141/65, oxygen saturation 99% on room air. Labs: WBC count 7.4, hemoglobin 12.0, hematocrit 35.8, platelet count 257, sodium 140, potassium 3.5, BUN 22, creatinine 2.3, glucose 112, calcium 9.5, troponin less than 0.01, anion gap 9 Benign positional vertigo: On admission patient was complaining of dizziness and slurring of speech. Initially patient was worked up to rule out stroke. Her imaging studies including CT scan head, MRI head and carotid Doppler remained negative for any stroke or significant carotid stenosis. Patient physical examination for cerebellar symptoms remain negative. Neurology consult was placed and recommendations were followed. Patient's symptoms improved but her dizziness remained there. PT evaluation was obtained and physical therapy was done for benign positional vertigo. Patient was started on meclizine. Her orthostatics remained negative for orthostatic hypotension. She was instructed to get out of the bed slowly. Patient was instructed to follow her primary care physician in 1 week. History of hypertension: Continued losartan and verapamil History of diabetes: Patient's diabetic medications were continued. Accu-Cheks were checked daily. Patient blood sugar levels remained under control during hospitalization. History of bipolar disorder: Continued quetiapine 100 mg in a.m. and 400 mg in p.m. her lamotrigine was also continued. Her lamotrigine levels are still pending. Acute on chronic kidney injury: Patient has chronic kidney injury stage III. Patient presented with acute on chronic kidney injury possibly prerenal. Initially treated with IV fluids later on patient was encouraged to drink orally. Her kidney function improved and came back to baseline. History of hypothyroidism: Continued levothyroxine DVT prophylaxis: Mechanical and subcutaneous heparin CODE STATUS: Full code Allergies: Coded Allergies: Cephalosporins (Severe, RESP DISTRESS, ITCHING 10/26/17) cefaclor (Severe, DYSPNEA, ITCHING 08/17/16) codeine (Severe, ITCHING, DYSPNEA, HALLUCINATE 08/17/16) morphine (Severe, ITCHING, DYSPNEA, HALLUCINATING, HIVES 10/26/17) oxycodone (Severe, ITCHING, DYSPNEA, HALLUCINATE 08/17/16) NSAIDS (Non-Steroidal Anti-Inflamma (DUE TO RENAL FUNCTION 10/26/17) aspirin (DUE TO RENAL FUNCTIONS 10/26/17) doxycycline (ITCHING ALL OVER BODY 07/25/17) Disposition Summary Disposition Principal Diagnosis: Benign positional vertigo Additional Diagnosis: Chronic kidney disease stage. Bipolar disorder. History of thyroid cancer. Hypertension. Discharge Disposition: home health services Discharge Instructions General Discharge Information Code Status: Full Code Patient's Diet: Diabetic diet Patient's Activity: Self-limited Follow-Up Instructions/Appts: Follow-up with your primary care physician in 1 week Medications at Discharge Discharge Medications: Continue taking these medications: Lorazepam (Lorazepam) 2 MG TABLET 1 Tablet ORAL TAKE AT BEDTIME Qty = 30 Comments: Last Taken:2099 DATE:10/29/17 Valsartan (Valsartan) 160 MG TABLET 1 Tablet ORAL DAILY Qty = 90 Comments: Last Taken:10/30/17 Time:0900 Sumatriptan Succinate (Imitrex) 50 MG TABLET 1 Tablet ORAL As Directed as needed for HEADACHE Qty = 6 Levothyroxine Sodium (Tirosint) 150 MCG CAPSULE 1 Tablet ORAL DAILY BEFORE BREAKFAST Qty = 84 Comments: Last Taken:0700 Time:10/30/17 Dexlansoprazole (Dexilant) 60 MG JOB.BP 1 Capsule ORAL DAILY Qty = 90 Quetiapine Fumarate (Seroquel) 50 MG TABLET 2 Tablet ORAL TAKE AT BEDTIME Comments: Last Taken:10/30/17 Time:0900 Quetiapine Fumarate (Seroquel) 50 MG TABLET 1 Tablet ORAL 4XDAILY as needed for ANXIETY Liothyronine Sodium (Liothyronine Sodium) 5 MCG TABLET 1 Tablet ORAL DAILY Qty = 90 Comments: Last Taken:10/30/17 Time:0600 Sertraline HCl (Zoloft) 50 MG TABLET 75 Tablet ORAL Every night Qty = 90 Comments: Last Taken:10/29/17 Time:2100 Albuterol Sulfate (Proair Hfa) 90 MCG HFA.AER.AD 2 Puff Inhale through mouth As Directed as needed for ASTHMA Qty = 9 Estradiol (Estrace) 0.01 % CREAM.APPL 0.5 Gram VAGINAL ONCE A WEEK Qty = 43 Quetiapine Fumarate (Seroquel XR) 400 MG TAB.ER.24H 1 Tablet ORAL Every night Comments: Last Taken:2100 Time:10/29/17 Verapamil HCl (Verapamil ER) 120 MG TABLET.ER 1 Tablet ORAL DAILY Qty = 90 Comments: Last Taken:10/30/17 Time:0900 Cholecalciferol (Vitamin D3) (Vitamin D) (Unknown Strength) TABLET Unknown Dose ORAL DAILY Acetaminophen (Acetaminophen) 500 MG TABLET 1 Tablet ORAL as needed for PAIN Fluticasone/Vilanterol (Breo Ellipta 200-25 Mcg INH) (Unknown Strength) BLST.W.DEV 1 PUFF Inhale through mouth Every Morning Sitagliptin Phosphate (Januvia) 50 MG TABLET 1 Tablet ORAL DAILY Comments: Last Taken:10/30/17 Time:0900 Lamotrigine (Lamictal) 100 MG TABLET 4 Tablet ORAL Every night Comments: Last Taken:2099 Time:10/29/17 Pregabalin (Lyrica) 100 MG CAPSULE 1 Capsule ORAL TWICE DAILY Comments: Last Taken:0900 Time:10/30/17 Mirabegron (Myrbetriq) 50 MG TAB.ER.24H 1 Tablet ORAL DAILY Start taking the following new medications: Meclizine HCl (Meclizine HCl) 12.5 MG TABLET 1 Tablet ORAL THREE TIMES A DAY NEEDED as needed for DIZZINESS Qty = 30 No Refills Copies To: Gerard SANTA,Markie Vidal Attending MD Review Statement Documenting Attending: Harsh Hannah MD Other Findings: Patient is medically stable to be discharged home today.
[2017-10-29 14:41] VITALS: BP 134/70
--- NOTE | 2017-10-29 15:12 | Patient Discharge Instructions ---
Discharge Instructions General Discharge Information You were seen/treated for: Vertigo Watch for these problems: Chest pain, palpitation, nausea, vomiting, chill, fever, weakness, numbness, tingling and loss of consciousness. If you experience any of these symptoms please come to ED or call to her primary care physician. Special Instructions: Follow-up with your primary care physician in 1 week. Diet Recommended Diet: Diabetic Activity Activity Self Limited: Yes Acute Coronary Syndrome Inclusion Criteria At DC or during hospital stay patient has or had the following: ACS DIAGNOSIS No Discharge Core Measures Meds if any: Prescribed or Continued at Discharge Meds if any: NOT Prescribed or Continued at Discharge Congestive Heart Failure Inclusion Criteria At DC or during hospital stay patient has or had the following: CHF DIAGNOSIS No Discharge Core Measures Meds if any: Prescribed or Continued at Discharge Meds if any: NOT Prescribed or Continued at Discharge Cerebrovascular accident Inclusion Criteria At DC or during hospital stay patient has or had the following: CVA/TIA Diagnosis No Discharge Core Measures Meds if any: Prescribed or Continued at Discharge Meds if any: NOT Prescribed or Continued at Discharge Venous thromboembolism Inclusion Criteria VTE Diagnosis No VTE Type NONE VTE Confirmed by (Test) NONE Discharge Core Measures - Per Current guidelines, there needs to be overlap - treatment for the first 5 days of Warfarin therapy. - If discharged on Warfarin prior to 5 days of - overlap therapy, the patient will need to be - assessed for post discharge needs including - *Post discharge parental anticoagulation - *Warfarin and/or parental anticoagulation education - *Follow up date to check INR post discharge At least 5 days overlap therapy as Inpatient No Meds if any: Prescribed or Continued at Discharge Note: Overlap Therapy is Warfarin and Anticoagulant Meds if any: NOT Prescribed or Continued at Discharge
[2017-10-29 22:03] VITALS: BP 140/70
[2017-10-30 06:29] VITALS: BP 128/74
--- NOTE | 2017-10-30 07:31 | PN- Housestaff ---
[facility] 10/30/17 0730: Subjective Follow-up For: Peripheral vertigo Tele-Events Since Last Visit: off tele Subjective: No overnight events. Patient remained afebrile. Seen and examined this morning. Patient denied chest pain, palpitation, nausea, vomiting, chill, fever , abdominal pain and dysuria. Patient reported that dizziness has been improved. She walked around with PT with the help of walker. Patient is feeling much improved. Possible discharge today with home health physical therapy. Review of Systems Constitutional: Denies: chills, fever. EENTM: Reports: see HPI. Cardiovascular: Denies: chest pain, palpitations. Respiratory: Denies: cough, short of breath, sputum production. Gastrointestinal: Denies: abdominal pain, diarrhea, nausea, vomiting. Genitourinary: Reports: no symptoms. Musculoskeletal: Reports: no symptoms. Neurological/Psychological: Reports: no symptoms. Objective Last 24 Hrs of Vital Signs/I&O Vital Signs Date Time Temp Pulse Resp B/P B/P Pulse O2 O2 Flow FiO2 Mean Ox Delivery Rate 10/30 0629 98.2 88 18 128/74 96 Room Air 10/29 2203 98.4 71 18 140/70 96 10/29 1441 98.3 78 20 134/70 95 Room Air 10/29 0819 98.6 78 18 122/66 10/29 0819 98.6 78 18 122/66 10/29 0800 Room Air Intake & Output 10/30 0800 10/30 0000 10/29 1600 Intake Total 200 480 860 Output Total 400 Balance -200 480 860 Intake, Oral 200 480 860 Output, Urine 400 Patient 228 lb Weight Physical Exam General Appearance: Alert, Oriented X3, Cooperative Skin Temp/Moisture Exam: Warm/Dry Sepsis Skin Exam (color): Normal for Ethnicity HEENT: Atraumatic, PERRLA, EOMI Neck: Supple Cardiovascular: Normal S1, Normal S2 Lungs: Clear to Auscultation Abdomen: Normal Bowel Sounds, Soft Neurological: Normal Speech, Strength at 5/5 X4 Ext, Normal Tone Extremities: No Edema Assessment/Plan Assessment: 62-year-old lady with past medical history significant for hypertension, asthma, bipolar disorder, diabetes, hyperparathyroidism status post parathyroidectomy, thyroid cancer status post thyroidectomy and CKD stage 3 (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 Following the patient on tele floor for following problems: Benign positional vertigo: -Patient probably has peripheral vertigo as she reported feeling dizziness while walking and on moving her head. Also was feeling intermittent nausea. -Her MRI head, CT scan head and Doppler study carotid remained negative for any stroke or carotid stenosis. Her cerebellar exam remained negative. -Her troponin EKG remained negative. -Echocardiogram is pending -PT evaluation and vestibular training. -Meclizine 12.5 mg tid for vertigo. -Cardiology recommended outpatient stress test. -Continue diabetic diet. -We will check orthostatic vitals again and if it is negative we will discharge the patient today. History of hypertension: -Continue losartan and verapamil History of diabetes: -Continue sitagliptin -Continue Accu-Cheks, her morning blood sugar is 102. -Continue diabetic diet. History of bipolar disorder: -Continue quetiapine 100 mg in a.m. and 400 mg in p.m. -Continue lamotrigine Acute on chronic kidney injury: Resolved -Possibly due to dehydration. -Chronic kidney disease stage III, baseline creatinine is 1.6 and GFR in 30s. -Patient kidney function has been improved. -Today Cr is 1.9 History of hypothyroidism: -Continue levothyroxine DVT prophylaxis: Mechanical and subcutaneous heparin CODE STATUS: Full code Problem List: 1. Vertigo 2. [id number] kidney injury Pain Ratin Pain Location: NONE Pain Goal: Remain pain free Pain Plan: PAIN PATHWAY Tomorrow's Labs & Rationales: NONE Brielle SANTA,[facility] [place] 10/30/17 1040: Attending MD Review Statement Attending Statement Attending MD Statement: examined this patient, discuss w/resident/PA/[employer]ER, agreed w/resident/PA/COMM[employer] OFF[employer]ER, reviewed EMR data (avail), discussed with nursing, discussed with case mgmt, amended to note Attending Assessment/Plan: Patient seen and examined. Resting comfortably and not in any acute distress. She had vestibular therapy earlier today by the physical therapy service and reports feeling much better. She was able to ambulate around the unit today. Physical therapy service is clearing her for discharge home today to follow-up in the outpatient setting for ongoing vestibular therapy. Recommend that she should be discharged with a walker for safety. Patient seen and examined. Reports feeling much better today compared to previous. Reports some dizziness when getting up and changing positions. She appreciates evaluation by the physical therapy service and will be following their recommendations. Will also be started the patient on meclizine to continue in the outpatient setting. Her slurred speech has resolved. She has no facial asymmetry. She has no deficit in her extremities. Speech may have been brought on by disorientation from her dizziness. Neuroimaging in the form of CT scan and MRI shows no evidence of stroke. She is medically stable to be discharged home today.
[2017-10-30 08:33] VITALS: BP 124/66
[2017-10-30] MEDS ORDERED: MECLIZINE HCL12.5 M1 PO (10:01)
== END 2017-10-30 14:24 | disposition home health service (06) | DRG 149 ==
LOC: ERH 16:20 → 1NO 18:10 → ERHI 18:10 → ENRESERV 18:40 → ENTRNSPT 20:56 → EDTRNSPT 21:07 → EDTRNSPTSTS 21:07 → 1NO 21:12 → CMPTRNSPT 21:25 → 1NO 10-28 10:40 → ENPENDDIS 10-30 10:37 → ENTRNSPT 10-30 14:13 → EDTRNSPTSTS 10-30 14:21 → EDTRNSPT 10-30 14:21 → 1NO 10-30 14:24 → CMPTRNSPT 10-30 14:31
PROVIDERS: Emergency Medicine
DX: H81.10 Benign paroxysmal vertigo, unspecified ear (principal); N17.9 Acute kidney failure, unspecified; J45.909 Unspecified asthma, uncomplicated; I10 Essential (primary) hypertension; Z85.850 Personal history of malignant neoplasm of thyroid; E89.0 Postprocedural hypothyroidism; E89.2 Postprocedural hypoparathyroidism; N18.3 Chronic kidney disease, stage 3 (moderate); F31.9 Bipolar disorder, unspecified; Z79.84 Long term (current) use of oral hypoglycemic drugs; R41.82 Altered mental status, unspecified; E86.0 Dehydration; R07.9 Chest pain, unspecified; R94.31 Abnormal electrocardiogram [ECG] [EKG]; E11.22 Type 2 diabetes mellitus with diabetic chronic kidney disease; I12.9 Hypertensive chronic kidney disease with stage 1 through stage 4 chronic kidney disease, or unspecified chronic kidney disease; Z88.6 Allergy status to analgesic agent; Z88.1 Allergy status to other antibiotic agents; Z88.5 Allergy status to narcotic agent; Z90.710 Acquired absence of both cervix and uterus; W06.XXXA Fall from bed, initial encounter; Y92.003 Bedroom of unspecified non-institutional (private) residence as the place of occurrence of the external cause; Z79.818 Long term (current) use of other agents affecting estrogen receptors and estrogen levels; Z79.51 Long term (current) use of inhaled steroids
CPT/HCPCS: 1NSP; 70551; 84133; 84300; 36415; 36592; 81003; 82436; 82570; 93005; 93010; 97110-GO; 97112-GO; 97116-GO; 97161-GP; 97530-GO; J0131; J1644; J3490